=== PATIENT | male | born 1980 | race Native Hawaiian/Other Pacific Islander ===

== ENCOUNTER 2017-12-26 23:33 | Emergency (ER) | payer MEDICARE ==
[2017-12-27 01:14] VITALS: BP 128/80; PULSE 84; TEMP 98.6; BMI 35.6
[2017-12-27] MEDS ORDERED: METOCLOPRAMIDE HCL INJECTION 10 MG/2 ML VIAL IVPUSH ONE (01:14)
[2017-12-27] MEDS ORDERED: KETOROLAC TROMETHAMINE 30 MG/1 ML VIAL IVPUSH ONE (01:14)
[2017-12-27] MEDS ORDERED: SODIUM CHLORIDE 0.9% 500 ML INFUS.BAG IV ONE (01:15)
[2017-12-27] MEDS ORDERED: methylPREDNISolone NA SUCC 125 MG/2 ML VIAL IVPB ONE (01:38)
--- NOTE | 2017-12-27 01:45 | PDOC ---
History of Present Illness - General Chief Complaint: Lightheaded Stated Complaint: LIGHTHEADED History Source: Patient Exam Limitations: No Limitations - History of Present Illness Initial Comments: 12/27/17 01:38 Patient is a 37 year old male with h/o HTN, asthma, arthritis, c/o left facial pain x 3 days. States he has been having an infection in the right lower jaw x 1 month. Has been on antibx for this and is scheduled for extraction in 4 days. Patient states the he has been having intermittent pain but 3 days the pain has worsened, continuos, 10/10, with photophobia. States has been congested and thinks this cough be his sinus. Denies fever, chills, nausea , vomiting. PMD: Koby PMHX: as above PsocHX: neg cig, drug, etoh ALL: NKDA GENERAL/CONSTITUTIONAL: [No fever or chills. No weakness. No weight change.] HEAD, EYES, EARS, NOSE AND THROAT: [No change in vision. No ear pain or discharge. No sore throat, (+) dental caries.] CARDIOVASCULAR: [No chest pain or shortness of breath.] RESPIRATORY: [No cough, wheezing, or hemoptysis.] GASTROINTESTINAL: [No nausea, vomiting, diarrhea or constipation. No rectal bleeding.] GENITOURINARY: [No dysuria, frequency, or change in urination.] MUSCULOSKELETAL: [No joint or muscle swelling or pain. No neck or back pain.] SKIN AND BREASTS: [No rash or easy bruising.] NEUROLOGIC: (+) headache, (-) vertigo, loss of consciousness, or loss of sensation.] PSYCHIATRIC: [No depression or anxiety.] ENDOCRINE: [No increased thirst. No abnormal weight change.] HEMATOLOGIC/LYMPHATIC: [No anemia, easy bleeding, or history of blood clots.] ALLERGIC/IMMUNOLOGIC: [No hives or skin allergy. No latex allergy.] GENERAL: [The patient is awake, alert, and fully oriented, moderate painful distress.] HEAD: [Normal with no signs of trauma, (+) tenderness frontal sinus.] EYES: [Pupils equal, round and reactive to light, extraocular movements intact, sclera anicteric, conjunctiva clear.] ENT: [Ears normal, nares patent, oropharynx clear without exudates. Moist mucous membranes. (+) dental caries to the #18, tender nodes submandible.] NECK: [Normal range of motion, supple without lymphadenopathy, JVD, or masses.] LUNGS: [Breath sounds equal, clear to auscultation bilaterally. No wheezes, and no crackles.] HEART: [Regular rate and rhythm, normal S1 and S2 without murmur, rub.] ABDOMEN: [Soft, nontender, normoactive bowel sounds. No guarding, no rebound. No masses.] EXTREMITIES: [Normal range of motion, no edema. No clubbing or cyanosis. No cords, erythema, or tenderness.] NEUROLOGICAL: [Cranial nerves II through XII grossly intact. Normal speech, normal gait, (+) photophobia left, no meningeal signs] PSYCH: [Normal mood, normal affect.] Past History - Past Medical History Allergies/Adverse Reactions: Allergies Allergy/AdvReac Type Severity Reaction Status Date / Time fish derived Allergy Severe Difficulty Verified 12/27/17 00:50 Breathing SEAFOOD Allergy Swelling Uncoded 12/27/17 00:50 Home Medications: Ambulatory Orders Fluticasone/Salmeterol [Advair 250-50 Diskus] 1 each IH DAILY 12/27/17 Losartan Potassium 25 mg PO DAILY 12/27/17 Naproxen 500 mg PO PRN 12/27/17 Tramadol HCl 50 mg PO PRN 12/27/17 Asthma: Yes COPD: No HTN: Yes - Immunization History Td Vaccination: Yes Immunization Up to Date: Yes - Suicide/Smoking/Psychosocial Hx Smoking Status: Yes (QUIT 01/2013) Smoking History: Former smoker Years of Tobacco Use: 20 Have you smoked in the past 12 months: No Number of Cigarettes Smoked Daily: 0 Cigars Per Day: 0 Information on smoking cessation initiated: No *Physical Exam - Vital Signs Last Vital Signs Temp Pulse Resp BP Pulse Ox 98.6 F 84 20 128/80 98 12/26/17 23:33 12/26/17 23:33 12/26/17 23:33 12/26/17 23:33 12/26/17 23:33 ED Treatment Course - LABORATORY CBC & Chemistry Diagram: 12/27/17 01:48 12/27/17 01:48 Medical Decision Making - Medical Decision Making 12/27/17 Patient is a 37 year old male with h/o HTN, asthma, arthritis, c/o left facial pain x 3 days, with tooth decay, and tenderness to left frontal sinus, with congestion. consider migraine, sinus SHAW, toothache/dental abscess. will treat with toradol, reglan, benadryl, solumedrol labs noted wbc 15 on cbc mostly stress induced Patient is feeling better the SHAW is resolved I discussed the physical exam findings, ancillary test results and final diagnoses with the patient. I answered all of the patient's questions. The patient was satisfied with the care received and felt comfortable with the discharge plan and treatment plan. The Patient agrees to follow up with the primary care physician within 24-72 hours. *DC/Admit/Observation/Transfer Diagnosis at time of Disposition: Tooth decay Sinusitis Qualifiers: Sinusitis location: unspecified location Chronicity: acute Recurrence: non- recurrent Qualified Code(s): J01.90 - Acute sinusitis, unspecified - Discharge Dispostion Disposition: HOME Condition at time of disposition: Stable - Referrals Referrals: Greg Whalen MD [Primary Care Provider] - - Patient Instructions Printed Discharge Instructions: DI for Sinusitis Additional Instructions: I discussed the physical exam findings, ancillary test results and final diagnoses with the patient. I answered all of the patient's questions. The patient was satisfied with the care received and felt comfortable with the discharge plan and treatment plan. The Patient agrees to follow up with the primary care physician within 24-72 hours. Follow-up with the dentist. Continue the Motrin 600 mg every 6 hours, take it with food. - Post Discharge Activity
[2017-12-27] MEDS ORDERED: METOCLOPRAMIDE HCL INJECTION 10 MG/2 ML VIAL ONE (01:50)
[2017-12-27] MEDS ORDERED: methylPREDNISolone NA SUCC 125 MG/2 ML VIAL ONE (01:51)
[2017-12-27] MEDS ORDERED: KETOROLAC TROMETHAMINE 30 MG/1 ML VIAL ONE (01:51)
[2017-12-27 01:57] LABS: BASO % 1.1 % (0-2.0); EOS % 2.4 % (0-4.5); LYMPH % 23.1 % (8-40); MCH 30.3 pg (25.7-33.7); MCHC 34.1 g/dl (32.0-35.9); MEAN CELL VOLUME 88.9 fl (80-96); MEAN PLT VOLUME 8.2 fl (7.5-11.1); MONO % 4.6 % (3.8-10.2); NEUT % 68.8 % (42.8-82.8); PLATELET COUNT 307 K/MM3 (134-434); RBC 4.61 M/mm3 (4.00-5.60); RDW 13.3 % (11.9-15.9); WHITE BLOOD COUNT 15.9 K/mm3 (4.0-10.0)
== END 2017-12-27 04:50 | disposition home or self-care (01) ==
LOC: JER 23:33
PROC: 3E0333Z Introduction of Anti-inflammatory into Peripheral Vein, Percutaneous Approach (ICD-10-PCS; principal; 2017-12-27)
PROC: 3E0333Z Introduction of Anti-inflammatory into Peripheral Vein, Percutaneous Approach (ICD-10-PCS; 2017-12-27)
PROC: 3E033GC Introduction of Other Therapeutic Substance into Peripheral Vein, Percutaneous Approach (ICD-10-PCS; 2017-12-27)
PROC: 3E033GC Introduction of Other Therapeutic Substance into Peripheral Vein, Percutaneous Approach (ICD-10-PCS; 2017-12-27)
DX: J01.90 Acute sinusitis, unspecified (principal); K02.9 Dental caries, unspecified; I10 Essential (primary) hypertension; J45.909 Unspecified asthma, uncomplicated; M12.9 Arthropathy, unspecified
CPT/HCPCS: 36415; 85025; 87070; 87430; 99283-25

== ENCOUNTER 2021-04-06 02:25 | Emergency (ER) | payer OTHER ==
[2021-04-06] MEDS ORDERED: KETOROLAC TROMETHAMINE 15 MG/ML VIAL IM ONE (03:23)
[2021-04-06] MEDS ORDERED: DEXAMETHASONE SOD PHOSPHATE 4 MG/1 ML VIAL IM ONE (03:29)
[2021-04-06 03:49] VITALS: BP 116/83; PULSE 109; TEMP 98.1; BMI 38.2
== END 2021-04-06 03:58 | disposition left against medical advice (07) ==
LOC: JER 02:25
PROC: 3E0233Z Introduction of Anti-inflammatory into Muscle, Percutaneous Approach (ICD-10-PCS; principal; 2021-04-06)
DX: M54.5 Low back pain (principal)
CPT/HCPCS: 99284-25

== ENCOUNTER 2021-05-10 19:47 | Inpatient (IN) | payer OTHER ==
[2021-05-10] MEDS ORDERED: LACTULOSE 20 GM/30 ML UDC (FOR ORAL USE ONLY) PO ONE (22:14)
[2021-05-10] MEDS ORDERED: LACTULOSE 20 GM/30 ML UDC (FOR ORAL USE ONLY) ONE (22:23)
[2021-05-10] MEDS ORDERED: KETOROLAC TROMETHAMINE 30 MG/1 ML VIAL IVPUSH ONE (22:32)
[2021-05-10] MEDS ORDERED: KETOROLAC TROMETHAMINE 30 MG/1 ML VIAL ONE (22:35)
[2021-05-10 22:39] LABS: BASO % 0.5 % (0-2.0); EOS % 1.9 % (0-4.5); LYMPH % 19.7 % (8-40); MCH 30.4 pg (25.7-33.7); MCHC 34.1 g/dl (32.0-35.9); MEAN PLT VOLUME 7.3 fl (7.5-11.1); MONO % 4.1 % (3.8-10.2); NEUT % 73.8 % (42.8-82.8); PLATELET COUNT 327 10^3/uL (134-434); RBC 4.95 M/mm3 (4.00-5.60); RDW 13.1 % (11.9-15.9); WHITE BLOOD COUNT 17.9 K/mm3 (4.0-10.0)
[2021-05-10 22:52] LABS: EPI CELLS 7 /uL (0-25.1); HYALINE CASTS 0 /uL (0-3.1); URINE APPEARANCE TURBID; URINE BACTERIA 2 /uL (0-1359); URINE BILIRUBIN NEGATIVE (NEGATIVE); URINE COLOR ORANGE; URINE GLUCOSE (UA) NEGATIVE (NEGATIVE); URINE KETONE TRACE (NEGATIVE); URINE LEUK ESTERASE 1+ (NEGATIVE); URINE NITRITE NEGATIVE (NEGATIVE); URINE PROTEIN 1+ (NEGATIVE); URINE RBC 532 /uL (0-23.9); URINE UROBILINOGEN 0.2 mg/dL (0.2-1.0); URINE WBC 63 /uL (0-25.8)
[2021-05-10 23:03] LABS: CALCIUM 9.3 mg/dL (8.5-10.1)
[2021-05-10 23:04] LABS: ALBUMIN 3.6 g/dl (3.4-5.0); BLOOD UREA NITROGEN 10.3 mg/dL (7-18)
[2021-05-10 23:08] LABS: BILIRUBIN,TOTAL 0.4 mg/dL (0.2-1); CREATININE 1.8 mg/dL (0.55-1.3); TOT PROT 7.5 g/dl (6.4-8.2)
[2021-05-10 23:09] LABS: PROTHROMBIN TIME (PATIENT) 12.1 SEC (9.7-13.0)
[2021-05-10] MEDS ORDERED: CEFTRIAXONE 1 GM in DEXTROSE 5%-WATER - 50 ML IVPB ONE (23:31)
[2021-05-10] MEDS ORDERED: CEFTRIAXONE 1 GM/50 ML BAG ONE (23:52)
[2021-05-11] MEDS ORDERED: ACETAMINOPHEN INJECTION 100 ML IVPB ONE (00:53)
[2021-05-11] MEDS: DEXTROSE 5%-0.45% SALINE 1,000 ML IV SCH (00:58)
[2021-05-11] MEDS: ACETAMINOPHEN 1000 MG/100 ML VIAL (NON FORMULARY) IVPB PRN ×2 (00:59→10:20)
[2021-05-11 05:44] VITALS: BMI 38.7
[2021-05-11 08:42] LABS: BASO % 0.4 % (0-2.0); EOS % 3.3 % (0-4.5); HEMATOCRIT 41.5 % (35.4-49); LYMPH % 24.1 % (8-40); MCH 30.4 pg (25.7-33.7); MCHC 33.8 g/dl (32.0-35.9); MEAN CELL VOLUME 90.2 fl (80-96); MEAN PLT VOLUME 8.1 fl (7.5-11.1); MONO % 4.5 % (3.8-10.2); NEUT % 67.7 % (42.8-82.8); PLATELET COUNT 305 10^3/uL (134-434); RBC 4.61 M/mm3 (4.00-5.60); RDW 13.1 % (11.9-15.9); WHITE BLOOD COUNT 14.2 K/mm3 (4.0-10.0)
[2021-05-11 09:10] LABS: ALBUMIN 3.2 g/dl (3.4-5.0); BLOOD UREA NITROGEN 15.4 mg/dL (7-18); CALCIUM 8.7 mg/dL (8.5-10.1)
[2021-05-11 09:13] LABS: CREATININE 1.8 mg/dL (0.55-1.3)
[2021-05-11 09:14] LABS: BILIRUBIN,TOTAL 0.3 mg/dL (0.2-1); TOT PROT 6.6 g/dl (6.4-8.2)
[2021-05-11] MEDS ORDERED: DEXTROSE 5%-WATER - 50 ML IVPB ONE ×2 (10:11→17:32)
[2021-05-11] MEDS ORDERED: PIPERACILLIN/TAZOBACTAM 3.375 GM VIAL IVPB ONE ×2 (10:11→17:32)
[2021-05-11] MEDS: PIPERACILLIN/TAZOB 3.375 GM 3.375 GM in DEXTROSE 5%-WATER - 50 ML IVPB SCH ×2 (10:24→17:39)
[2021-05-11] MEDS: LOSARTAN POTASSIUM 25 MG TABLET PO SCH (10:24)
[2021-05-11] MEDS ORDERED: POTASSIUM CHLORIDE TABS 20 MEQ TABLET.ER (FP) PO ONE (15:29)
[2021-05-11] MEDS: ACETAMINOPHEN 500 MG TABLET (FP) PO PRN (17:55)
[2021-05-11] MEDS ORDERED: CEFTRIAXONE 1 GM in DEXTROSE 5%-WATER - 50 ML IVPB SCH (18:00)
[2021-05-11] MEDS: POLYETHYLENE GLYCOL (HEALTHYLAX) 3350 17 GM PACKET PO SCH (19:31)
[2021-05-11] MEDS ORDERED: MORPHINE SULFATE 2 MG/ML VIAL IVPUSH ONE (21:10)
[2021-05-11] MEDS: DOCUSATE SODIUM 100 MG CAPSULE (FP) PO SCH (21:28)
[2021-05-12] MEDS ORDERED: PIPERACILLIN/TAZOBACTAM 3.375 GM VIAL IVPB ONE ×3 (01:11→18:38)
[2021-05-12] MEDS ORDERED: DEXTROSE 5%-WATER - 50 ML IVPB ONE ×3 (01:12→18:38)
[2021-05-12] MEDS: DEXTROSE 5%-0.45% SALINE 1,000 ML IV SCH ×2 (01:33→02:20)
[2021-05-12] MEDS: PIPERACILLIN/TAZOB 3.375 GM 3.375 GM in DEXTROSE 5%-WATER - 50 ML IVPB SCH ×3 (01:33→18:42)
[2021-05-12] MEDS: ACETAMINOPHEN 500 MG TABLET (FP) PO PRN ×2 (01:36→09:00)
[2021-05-12] MEDS: LOSARTAN POTASSIUM 25 MG TABLET PO SCH (10:14)
[2021-05-12] MEDS: POLYETHYLENE GLYCOL (HEALTHYLAX) 3350 17 GM PACKET PO SCH (10:14)
[2021-05-12 13:54] LABS: BASO % 0.3 % (0-2.0); HEMATOCRIT 41.5 % (35.4-49); HEMOGLOBIN 14.2 GM/dL (11.7-16.9); LYMPH % 21.6 % (8-40); MCH 30.8 pg (25.7-33.7); MCHC 34.2 g/dl (32.0-35.9); MEAN CELL VOLUME 90.1 fl (80-96); MEAN PLT VOLUME 7.8 fl (7.5-11.1); MONO % 5.1 % (3.8-10.2); PLATELET COUNT 318 10^3/uL (134-434); RBC 4.61 M/mm3 (4.00-5.60); WHITE BLOOD COUNT 14.1 K/mm3 (4.0-10.0)
[2021-05-12 14:15] LABS: CALCIUM 8.7 mg/dL (8.5-10.1)
[2021-05-12 14:16] LABS: ALBUMIN 3.2 g/dl (3.4-5.0)
[2021-05-12 14:21] LABS: BILIRUBIN,TOTAL 0.4 mg/dL (0.2-1); TOT PROT 6.8 g/dl (6.4-8.2)
[2021-05-12] MEDS ORDERED: CYCLOBENZAPRINE HCL 5 MG TABLET PO ONE (16:01)
[2021-05-12] MEDS: ACETAMINOPHEN 1000 MG/100 ML VIAL (NON FORMULARY) IVPB PRN ×2 (16:46→22:34)
[2021-05-12] MEDS: DOCUSATE SODIUM 100 MG CAPSULE (FP) PO SCH (21:09)
[2021-05-13] MEDS ORDERED: DEXTROSE 5%-WATER - 50 ML IVPB ONE ×3 (00:33→17:18)
[2021-05-13] MEDS ORDERED: PIPERACILLIN/TAZOBACTAM 3.375 GM VIAL IVPB ONE ×3 (00:33→17:18)
[2021-05-13] MEDS: DEXTROSE 5%-0.45% SALINE 1,000 ML IV SCH ×2 (01:15→21:43)
[2021-05-13] MEDS: PIPERACILLIN/TAZOB 3.375 GM 3.375 GM in DEXTROSE 5%-WATER - 50 ML IVPB SCH ×3 (01:25→17:58)
[2021-05-13] MEDS: ACETAMINOPHEN 1000 MG/100 ML VIAL (NON FORMULARY) IVPB PRN ×2 (05:04→12:08)
[2021-05-13] MEDS ORDERED: PT OWN MED DRAWER 7, Y5N ONE (09:27)
[2021-05-13] MEDS: LOSARTAN POTASSIUM 25 MG TABLET PO SCH (09:33)
[2021-05-13] MEDS: POLYETHYLENE GLYCOL (HEALTHYLAX) 3350 17 GM PACKET PO SCH (09:33)
[2021-05-13] MEDS: KETOROLAC TROMETHAMINE 15 MG/ML VIAL IVPUSH PRN (21:39)
[2021-05-13] MEDS: DOCUSATE SODIUM 100 MG CAPSULE (FP) PO SCH (21:43)
[2021-05-13 21:54] VITALS: TEMP 98.2
[2021-05-14] MEDS ORDERED: PIPERACILLIN/TAZOBACTAM 3.375 GM VIAL IVPB ONE ×2 (00:53→09:31)
[2021-05-14] MEDS ORDERED: DEXTROSE 5%-WATER - 50 ML IVPB ONE ×2 (00:53→09:31)
[2021-05-14] MEDS: PIPERACILLIN/TAZOB 3.375 GM 3.375 GM in DEXTROSE 5%-WATER - 50 ML IVPB SCH ×2 (00:58→09:51)
[2021-05-14] MEDS: DEXTROSE 5%-0.45% SALINE 1,000 ML IV SCH (00:59)
[2021-05-14 07:12] VITALS: BP 109/74; PULSE 62
[2021-05-14 07:29] LABS: BASO % 0.3 % (0-2.0); EOS % 3.7 % (0-4.5); HEMATOCRIT 38.4 % (35.4-49); HEMOGLOBIN 13.1 GM/dL (11.7-16.9); LYMPH % 27.2 % (8-40); MCH 30.9 pg (25.7-33.7); MCHC 34.2 g/dl (32.0-35.9); MEAN CELL VOLUME 90.3 fl (80-96); MEAN PLT VOLUME 7.8 fl (7.5-11.1); MONO % 5.5 % (3.8-10.2); NEUT % 63.3 % (42.8-82.8); PLATELET COUNT 318 10^3/uL (134-434); RBC 4.25 M/mm3 (4.00-5.60); RDW 12.8 % (11.9-15.9)
[2021-05-14 07:38] LABS: BLOOD UREA NITROGEN 8.3 mg/dL (7-18); CALCIUM 8.5 mg/dL (8.5-10.1)
[2021-05-14 07:42] LABS: CREATININE 1.6 mg/dL (0.55-1.3)
[2021-05-14 07:43] LABS: BILIRUBIN,TOTAL 0.3 mg/dL (0.2-1); TOT PROT 6.4 g/dl (6.4-8.2)
[2021-05-14] MEDS: POLYETHYLENE GLYCOL (HEALTHYLAX) 3350 17 GM PACKET PO SCH (09:52)
[2021-05-14] MEDS: LOSARTAN POTASSIUM 25 MG TABLET PO SCH (09:52)
[2021-05-14] MEDS: KETOROLAC TROMETHAMINE 15 MG/ML VIAL IVPUSH PRN (09:58)
== END 2021-05-14 14:27 | disposition home or self-care (01) | DRG 694 ==
LOC: JER 19:47 → JERBED 21:50 → J8W 05-11 05:23
PROVIDERS: ADMIT Internal Medicine; ATTEND Internal Medicine
DX: N13.2 Hydronephrosis with renal and ureteral calculous obstruction (principal); M32.9 Systemic lupus erythematosus, unspecified; K59.00 Constipation, unspecified; R31.9 Hematuria, unspecified; I10 Essential (primary) hypertension; F17.210 Nicotine dependence, cigarettes, uncomplicated; E66.9 Obesity, unspecified; Z68.38 Body mass index [BMI] 38.0-38.9, adult
CPT/HCPCS: 36415; 71046-TC-FY; 74176-TC; 76775-TC; 80053; 81003; 83605; 85025; 85610; 87040; 87086; 93005; 93010; 99285-25; C9803; J0131; U0003; U0005

== ENCOUNTER 2021-06-09 04:51 | Day surgery (SDC) | payer OTHER ==
[2021-06-06 18:00] VITALS: BMI 36.2
[2021-06-09] MEDS ORDERED: PROPOFOL 20 ML ONE ×2 (10:29→10:39)
[2021-06-09] MEDS ORDERED: ceFAZolin SODIUM 1 GM VIAL ONE (10:49)
[2021-06-09] MEDS ORDERED: ceFAZolin SODIUM 1 GM VIAL IVPB ONE (10:51)
[2021-06-09] MEDS ORDERED: DEXAMETHASONE SOD PHOSPHATE 4 MG/1 ML VIAL ONE (10:53)
[2021-06-09] MEDS ORDERED: KETOROLAC TROMETHAMINE 30 MG/1 ML VIAL ONE (11:35)
[2021-06-09] MEDS ORDERED: oxyCODONE HCL 5 MG TABLET PO PRN (11:48)
[2021-06-09] MEDS ORDERED: ACETAMINOPHEN 325 MG TABLET (FP) PO PRN (11:48)
[2021-06-09] MEDS ORDERED: ONDANSETRON 4 MG/2 ML VIAL IVPUSH PRN (11:48)
[2021-06-09] MEDS ORDERED: LACTATED RINGERS SOLUTION 1,000 ML IV SCH (12:00)
[2021-06-09] MEDS ORDERED: ALBUTEROL SO4 0.083% IH SOL 2.5 MG/3 ML VIAL.NEB. NEB ONE (12:24)
[2021-06-09] MEDS ORDERED: ACETAMINOPHEN INJECTION 100 ML IVPB ONE (13:06)
[2021-06-09] MEDS ORDERED: ACETAMINOPHEN 1000 MG/100 ML VIAL (NON FORMULARY) IVPB ONE (14:03)
[2021-06-09] MEDS ORDERED: ALBUTEROL SO4 0.5 % INH SOLN 2.5 MG/0.5 ML VIAL.NEB. NEB ONE (14:03)
[2021-06-09] MEDS ORDERED: oxyCODONE HCL 5 MG TABLET ONE (14:28)
[2021-06-09 14:49] VITALS: BP 124/84; PULSE 67; TEMP 97.5
== END 2021-06-09 15:01 | disposition home or self-care (01) ==
LOC: JASU-SURG 04:51
PROVIDERS: ATTEND Urology
PROC: 0TC78ZZ Extirpation of Matter from Left Ureter, Via Natural or Artificial Opening Endoscopic (ICD-10-PCS; principal; 2021-06-09 10:00)
PROC: 0T778DZ Dilation of Left Ureter with Intraluminal Device, Via Natural or Artificial Opening Endoscopic (ICD-10-PCS; 2021-06-09 10:00)
PROC: BT1FYZZ Fluoroscopy of Left Kidney, Ureter and Bladder using Other Contrast (ICD-10-PCS; 2021-06-09 10:00)
DX: N13.2 Hydronephrosis with renal and ureteral calculous obstruction (principal)
CPT/HCPCS: 87086; 87186; 88108; 94760; J0131

== ENCOUNTER 2021-10-30 15:03 | Day surgery (SDC) | payer OTHER ==
[2021-10-30] MEDS ORDERED: BLEOMYCIN SULFATE IVPB ONE (15:45)
[2021-10-30] MEDS ORDERED: SODIUM CHLORIDE IVPB ONE (15:45)
[2021-10-30 17:36] VITALS: TEMP 98.6
[2021-10-30 17:37] VITALS: BP 100/69; PULSE 104
== END 2021-10-30 17:40 | disposition home or self-care (01) ==
LOC: JONCCHEMO 15:03 → J7W 15:10 → JONCCHEMO 17:40
PROVIDERS: ATTEND Internal Medicine Hematology & Oncology
DX: Z51.11 Encounter for antineoplastic chemotherapy (principal); C62.90 Malignant neoplasm of unspecified testis, unspecified whether descended or undescended
CPT/HCPCS: 96409; J9040

== ENCOUNTER 2021-10-31 14:05 | Day surgery (SDC) | payer OTHER ==
[~2021-10-31 14:05] MED LIST: BLEOMYCIN SULFATE IVPB ONE; CISPLATIN IV ONE; DEXAMETHASONE SODIUM PHOSPHATE 10 MG, ONDANSETRON INJECTION 8 MG in SODIUM CHLORIDE 100 ML IVPB ONE; ETOPOSIDE IV ONE; FOSAPREPITANT DIMEGLUMINE 150 MG in SODIUM CHLORIDE 145 ML IVPB ONE; KCL 10 MEQ IVPB 10 MEQ/100 ML INFUS.BAG IVPB ONE; MAGNESIUM 1GM/D5W - 1 GM/100 ML IVPB IVPB ONE; SODIUM CHLORIDE 0.9% IV ONE; SODIUM CHLORIDE 1,000 ML IV ONE; SODIUM CHLORIDE IV ONE; SODIUM CHLORIDE IVPB ONE
[2021-10-31 15:10] LABS: BASO % 0.3 % (0-2.0); EOS % 4.1 % (0-4.5); HEMATOCRIT 40.5 % (35.4-49); HEMOGLOBIN 13.4 GM/dL (11.7-16.9); MCH 27.6 pg (25.7-33.7); MCHC 33.1 g/dl (32.0-35.9); MEAN CELL VOLUME 83.4 fl (80-96); MEAN PLT VOLUME 7.3 fl (7.5-11.1); MONO % 5.5 % (3.8-10.2); NEUT % 60.1 % (42.8-82.8); PLATELET COUNT 424 10^3/uL (134-434); RBC 4.85 M/mm3 (4.00-5.60); RDW 14.6 % (11.9-15.9); WHITE BLOOD COUNT 9.3 K/mm3 (4.0-10.0)
[2021-10-31 15:38] LABS: CALCIUM 9.4 mg/dL (8.5-10.1)
[2021-10-31 15:39] LABS: ALBUMIN 3.7 g/dl (3.4-5.0); BLOOD UREA NITROGEN 9.3 mg/dL (7-18); MAGNESIUM 1.9 mg/dL (1.8-2.4)
[2021-10-31 15:42] LABS: CREATININE 0.9 mg/dL (0.55-1.3)
[2021-10-31 15:43] LABS: TOT PROT 7.8 g/dl (6.4-8.2)
[2021-10-31 15:44] LABS: BILIRUBIN,TOTAL 0.3 mg/dL (0.2-1)
[2021-10-31 21:10] VITALS: BP 137/65; PULSE 81; TEMP 98.3
== END 2021-10-31 21:45 | disposition home or self-care (01) ==
LOC: J7W 14:05 → JONCCHEMO 14:05
PROVIDERS: ATTEND Internal Medicine Hematology & Oncology
DX: Z51.11 Encounter for antineoplastic chemotherapy (principal); C62.90 Malignant neoplasm of unspecified testis, unspecified whether descended or undescended
CPT/HCPCS: 36415; 80053; 83615; 83735; 85025; 96367; 96375; 96411; 96413; 96417; J1453; J9040

== ENCOUNTER 2021-11-01 15:00 | Day surgery (SDC) | payer OTHER ==
[~2021-11-01 15:00] MED LIST changes: -BLEOMYCIN SULFATE IVPB ONE; -FOSAPREPITANT DIMEGLUMINE 150 MG in SODIUM CHLORIDE 145 ML IVPB ONE; -SODIUM CHLORIDE 0.9% IV ONE; -SODIUM CHLORIDE IVPB ONE
[2021-11-01 17:44] VITALS: TEMP 97.9
[2021-11-01 18:37] VITALS: BP 121/80; PULSE 74
== END 2021-11-01 18:40 | disposition home or self-care (01) ==
LOC: JONCCHEMO 15:00
PROVIDERS: ATTEND Internal Medicine Hematology & Oncology
DX: Z51.11 Encounter for antineoplastic chemotherapy (principal); C62.90 Malignant neoplasm of unspecified testis, unspecified whether descended or undescended
CPT/HCPCS: 96361; 96366; 96367; 96413; 96417

== ENCOUNTER 2021-11-02 08:46 | Day surgery (SDC) | payer OTHER ==
[~2021-11-02 08:46] MED LIST changes: +BLEOMYCIN SULFATE IVPB ONE; -CISPLATIN IV ONE; -DEXAMETHASONE SODIUM PHOSPHATE 10 MG, ONDANSETRON INJECTION 8 MG in SODIUM CHLORIDE 100 ML IVPB ONE; -ETOPOSIDE IV ONE; -KCL 10 MEQ IVPB 10 MEQ/100 ML INFUS.BAG IVPB ONE; -MAGNESIUM 1GM/D5W - 1 GM/100 ML IVPB IVPB ONE; -SODIUM CHLORIDE 1,000 ML IV ONE; -SODIUM CHLORIDE IV ONE; +SODIUM CHLORIDE IVPB ONE
[2021-11-02] MEDS ORDERED: SODIUM CHLORIDE 1,000 ML IV ONE ×2 (09:00→13:30)
[2021-11-02] MEDS ORDERED: DEXAMETHASONE SODIUM PHOSPHATE 10 MG, ONDANSETRON INJECTION 8 MG in SODIUM CHLORIDE 100 ML IVPB ONE (10:00)
[2021-11-02] MEDS ORDERED: SODIUM CHLORIDE IV ONE ×2 (10:30→12:30)
[2021-11-02] MEDS ORDERED: ETOPOSIDE IV ONE (10:30)
[2021-11-02] MEDS ORDERED: CISPLATIN IV ONE (12:30)
[2021-11-02] MEDS ORDERED: MAGNESIUM 1GM/D5W - 1 GM/100 ML IVPB IVPB ONE (13:30)
[2021-11-02] MEDS ORDERED: KCL 10 MEQ IVPB 10 MEQ/100 ML INFUS.BAG IVPB ONE (13:30)
[2021-11-02 15:59] VITALS: TEMP 97.9
[2021-11-02 16:52] VITALS: BP 143/92; PULSE 65
== END 2021-11-02 16:40 | disposition home or self-care (01) ==
LOC: JONCCHEMO 08:46 → J7W 08:47 → JONCCHEMO 16:40
PROVIDERS: ATTEND Internal Medicine Hematology & Oncology
DX: Z51.11 Encounter for antineoplastic chemotherapy (principal); C62.90 Malignant neoplasm of unspecified testis, unspecified whether descended or undescended
CPT/HCPCS: 96361; 96366; 96367; 96413; 96417

== ENCOUNTER 2021-11-03 08:28 | Day surgery (SDC) | payer OTHER ==
[2021-11-03] MEDS ORDERED: SODIUM CHLORIDE 1,000 ML IV ONE ×2 (09:30→11:45)
[2021-11-03] MEDS ORDERED: DEXAMETHASONE INJECTION 10 MG, ONDANSETRON INJECTION 8 MG in SODIUM CHLORIDE 100 ML IVPUSH ONE (10:00)
[2021-11-03] MEDS ORDERED: SODIUM CHLORIDE IV ONE ×2 (11:30→13:30)
[2021-11-03] MEDS ORDERED: ETOPOSIDE IV ONE (11:30)
[2021-11-03] MEDS ORDERED: MAGNESIUM 1GM/D5W - 1 GM/100 ML IVPB IVPB ONE (11:45)
[2021-11-03] MEDS ORDERED: KCL 10 MEQ IVPB 10 MEQ/100 ML INFUS.BAG IVPB ONE (11:45)
[2021-11-03] MEDS ORDERED: CISPLATIN IV ONE (13:30)
[2021-11-03] MEDS ORDERED: POTASSIUM CHLORIDE 10 MEQ, MAGNESIUM SULFATE 1 GM in SODIUM CHLORIDE 1,000 ML IV ONE (14:30)
[2021-11-03 15:34] VITALS: TEMP 97.7
[2021-11-03 17:41] VITALS: BP 140/93; PULSE 61
== END 2021-11-03 17:42 | disposition home or self-care (01) ==
LOC: JONCCHEMO 08:28 → J7W 08:28 → JONCCHEMO 17:42
PROVIDERS: ATTEND Internal Medicine Hematology & Oncology
DX: Z12.11 Encounter for screening for malignant neoplasm of colon (principal); C62.90 Malignant neoplasm of unspecified testis, unspecified whether descended or undescended
CPT/HCPCS: 96361; 96366; 96367; 96413; 96415; 96417; J1100

== ENCOUNTER 2021-11-07 15:00 | Day surgery (SDC) | payer OTHER ==
[2021-11-07 11:06] LABS: BASO % 0.8 % (0-2.0); EOS % 1.8 % (0-4.5); HEMATOCRIT 37.2 % (35.4-49); HEMOGLOBIN 12.2 GM/dL (11.7-16.9); LYMPH % 25.2 % (8-40); MCHC 32.9 g/dl (32.0-35.9); MEAN PLT VOLUME 7.8 fl (7.5-11.1); MONO % 0.3 % (3.8-10.2); NEUT % 71.9 % (42.8-82.8); PLATELET COUNT 322 10^3/uL (134-434); RBC 4.53 M/mm3 (4.00-5.60); RDW 14.3 % (11.9-15.9); WHITE BLOOD COUNT 7.7 K/mm3 (4.0-10.0)
[2021-11-07 11:30] LABS: CALCIUM 9.1 mg/dL (8.5-10.1)
[2021-11-07 11:32] LABS: ALBUMIN 3.2 g/dl (3.4-5.0); BLOOD UREA NITROGEN 18.4 mg/dL (7-18); MAGNESIUM 1.1 mg/dL (1.8-2.4)
[2021-11-07 11:34] LABS: CREATININE 0.9 mg/dL (0.55-1.3); URIC ACID 6.7 mg/dL (2.6-7.2)
[2021-11-07 11:36] LABS: BILIRUBIN,TOTAL 0.4 mg/dL (0.2-1); TOT PROT 6.6 g/dl (6.4-8.2)
[~2021-11-07 15:00] MED LIST changes: -BLEOMYCIN SULFATE IVPB ONE; +CISPLATIN IV ONE; +DEXAMETHASONE INJECTION 10 MG in SODIUM CHLORIDE 50 ML IVPB ONE; +ETOPOSIDE IV ONE; +KCL 10 MEQ IVPB 10 MEQ/100 ML INFUS.BAG IVPB ONE; +MAGNESIUM 1GM/D5W - 1 GM/100 ML IVPB IVPB ONE; +PALONOSETRON HCL 0.25 MG/5 ML VIAL IVPUSH ONE; +SODIUM CHLORIDE 1,000 ML IV ONE; +SODIUM CHLORIDE IV ONE; -SODIUM CHLORIDE IVPB ONE
[2021-11-07 16:30] VITALS: TEMP 98.9
[2021-11-08 07:59] VITALS: BP 126/93; PULSE 74
== END 2021-11-07 18:30 | disposition home or self-care (01) ==
LOC: J7W 15:00 → JONCCHEMO 15:00
PROVIDERS: ATTEND Internal Medicine Hematology & Oncology
DX: Z51.11 Encounter for antineoplastic chemotherapy (principal); C62.90 Malignant neoplasm of unspecified testis, unspecified whether descended or undescended
CPT/HCPCS: 36415; 80053; 83615; 83735; 84550; 85025; 96361; 96366; 96367; 96375; 96413; 96415; 96417; J1100; J2469

== ENCOUNTER 2021-11-13 11:00 | Day surgery (SDC) | payer OTHER ==
[2021-11-13 10:24] LABS: HEMATOCRIT 34.1 % (35.4-49); HEMOGLOBIN 11.4 GM/dL (11.7-16.9); MCH 27.5 pg (25.7-33.7); MCHC 33.5 g/dl (32.0-35.9); MEAN CELL VOLUME 82.1 fl (80-96); MEAN PLT VOLUME 7.1 fl (7.5-11.1); PLATELET COUNT 162 10^3/uL (134-434); RBC 4.15 M/mm3 (4.00-5.60); WHITE BLOOD COUNT 2.7 K/mm3 (4.0-10.0)
[2021-11-13 10:47] LABS: CHLORIDE 104 mmol/L (98-107); SODIUM 137 mmol/L (136-145)
[2021-11-13 10:49] LABS: CALCIUM 8.7 mg/dL (8.5-10.1)
[2021-11-13 10:50] LABS: ALBUMIN 3.5 g/dl (3.4-5.0); ANION GAP 7 MMOL/L (8-16); CO2 26 mmol/L (21-32); GLUCOSE,RANDOM 101 mg/dL (74-106); MAGNESIUM 1.7 mg/dL (1.8-2.4)
[2021-11-13 10:52] LABS: BILIRUBIN,DIRECT < 0.1 mg/dL (0.0-0.2); PHOSPHOROUS 2.9 mg/dL (2.5-4.9)
[2021-11-13 10:53] LABS: CREATININE 0.9 mg/dL (0.55-1.3); SGOT/AST 10 U/L (15-37); SGPT/ALT 25 U/L (13-61)
[2021-11-13 10:54] LABS: BILIRUBIN,TOTAL 0.2 mg/dL (0.2-1)
[2021-11-13 10:55] LABS: ALK PHOS 88 U/L (45-117)
[2021-11-13 10:57] LABS: LDH 169 U/L (87-246)
[~2021-11-13 11:00] MED LIST changes: +BLEOMYCIN SULFATE IVPB ONE; +SODIUM CHLORIDE 250 ML IV ONE; +SODIUM CHLORIDE IVPB ONE
[2021-11-13] MEDS ORDERED: DEXAMETHASONE SODIUM PHOSPHATE 10 MG, ONDANSETRON INJECTION 8 MG in SODIUM CHLORIDE 100 ML IVPB ONE (11:30)
[2021-11-13 11:32] LABS: ANISOCYTOSIS 2+; MACROCYTOSIS 0; PLATELET ESTIMATE NORMAL
[2021-11-13 16:39] VITALS: TEMP 98.4
[2021-11-13 16:42] VITALS: BP 138/93; PULSE 89
== END 2021-11-13 13:45 | disposition home or self-care (01) ==
LOC: JONCCHEMO 11:00
PROVIDERS: ATTEND Internal Medicine Hematology & Oncology
PROC: 3E03305 Introduction of Other Antineoplastic into Peripheral Vein, Percutaneous Approach (ICD-10-PCS; principal; 2021-11-13)
PROC: 3E033GC Introduction of Other Therapeutic Substance into Peripheral Vein, Percutaneous Approach (ICD-10-PCS; 2021-11-13)
PROC: 3E033GC Introduction of Other Therapeutic Substance into Peripheral Vein, Percutaneous Approach (ICD-10-PCS; 2021-11-13)
DX: Z51.11 Encounter for antineoplastic chemotherapy (principal); C62.91 Malignant neoplasm of right testis, unspecified whether descended or undescended
CPT/HCPCS: 36415; 80048; 80076; 83615; 83735; 84100; 85027; 96361; 96365; 96409; J2405; J9040

== ENCOUNTER 2021-11-27 11:55 | Day surgery (SDC) | payer OTHER ==
[2021-11-27 11:30] LABS: HEMATOCRIT 38.4 % (35.4-49); HEMOGLOBIN 13.1 GM/dL (11.7-16.9); MCH 28.5 pg (25.7-33.7); MEAN CELL VOLUME 83.7 fl (80-96); MEAN PLT VOLUME 7.1 fl (7.5-11.1); PLATELET COUNT 338 10^3/uL (134-434); RBC 4.59 M/mm3 (4.00-5.60); RDW 16.4 % (11.9-15.9); WHITE BLOOD COUNT 13.1 K/mm3 (4.0-10.0)
[2021-11-27 11:51] LABS: CALCIUM 9.4 mg/dL (8.5-10.1)
[2021-11-27 11:52] LABS: ALBUMIN 3.7 g/dl (3.4-5.0); BLOOD UREA NITROGEN 12.7 mg/dL (7-18); MAGNESIUM 1.9 mg/dL (1.8-2.4)
[~2021-11-27 11:55] MED LIST changes: -CISPLATIN IV ONE; -DEXAMETHASONE INJECTION 10 MG in SODIUM CHLORIDE 50 ML IVPB ONE; +DEXAMETHASONE SODIUM PHOSPHATE 10 MG, ONDANSETRON INJECTION 8 MG in SODIUM CHLORIDE 100 ML IVPB ONE; -ETOPOSIDE IV ONE; -KCL 10 MEQ IVPB 10 MEQ/100 ML INFUS.BAG IVPB ONE; -MAGNESIUM 1GM/D5W - 1 GM/100 ML IVPB IVPB ONE; -PALONOSETRON HCL 0.25 MG/5 ML VIAL IVPUSH ONE; -SODIUM CHLORIDE 1,000 ML IV ONE; -SODIUM CHLORIDE IV ONE
[2021-11-27 11:56] LABS: BILIRUBIN,TOTAL 0.2 mg/dL (0.2-1)
[2021-11-27 11:57] LABS: TOT PROT 7.3 g/dl (6.4-8.2)
[2021-11-27 17:57] VITALS: BP 117/55; PULSE 88; TEMP 98.1
== END 2021-11-27 13:40 | disposition home or self-care (01) ==
LOC: J7W 11:55 → JCHEMO 11:55
PROVIDERS: ATTEND Internal Medicine Hematology & Oncology
PROC: 3E033GC Introduction of Other Therapeutic Substance into Peripheral Vein, Percutaneous Approach (ICD-10-PCS; principal; 2021-11-27)
PROC: 3E0337Z Introduction of Electrolytic and Water Balance Substance into Peripheral Vein, Percutaneous Approach (ICD-10-PCS; 2021-11-27)
PROC: 3E03305 Introduction of Other Antineoplastic into Peripheral Vein, Percutaneous Approach (ICD-10-PCS; 2021-11-27)
DX: Z51.11 Encounter for antineoplastic chemotherapy (principal); C62.91 Malignant neoplasm of right testis, unspecified whether descended or undescended
CPT/HCPCS: 36415; 80053; 83615; 83735; 85025; 96361; 96365; 96409; J2405; J9040

== ENCOUNTER 2021-12-04 09:56 | Day surgery (SDC) | payer OTHER ==
[~2021-12-04 09:56] MED LIST changes: -BLEOMYCIN SULFATE IVPB ONE; -DEXAMETHASONE SODIUM PHOSPHATE 10 MG, ONDANSETRON INJECTION 8 MG in SODIUM CHLORIDE 100 ML IVPB ONE; +SODIUM CHLORIDE 1,000 ML IV ONE; -SODIUM CHLORIDE 250 ML IV ONE; -SODIUM CHLORIDE IVPB ONE
[2021-12-04] MEDS ORDERED: FOSAPREPITANT DIMEGLUMINE 150 MG in SODIUM CHLORIDE 145 ML IVPB ONE (10:00)
[2021-12-04] MEDS ORDERED: DEXAMETHASONE SODIUM PHOSPHATE 10 MG, ONDANSETRON INJECTION 8 MG in SODIUM CHLORIDE 100 ML IVPB ONE (10:00)
[2021-12-04] MEDS ORDERED: BLEOMYCIN SULFATE IVPB ONE (10:30)
[2021-12-04] MEDS ORDERED: SODIUM CHLORIDE IVPB ONE (10:30)
[2021-12-04 11:15] LABS: BASO % 0.3 % (0-2.0); HEMATOCRIT 37.9 % (35.4-49); HEMOGLOBIN 12.9 GM/dL (11.7-16.9); LYMPH % 26.5 % (8-40); MCH 28.2 pg (25.7-33.7); MCHC 33.9 g/dl (32.0-35.9); MEAN CELL VOLUME 83.1 fl (80-96); MEAN PLT VOLUME 7.2 fl (7.5-11.1); MONO % 8.8 % (3.8-10.2); NEUT % 61.4 % (42.8-82.8); PLATELET COUNT 213 10^3/uL (134-434); RBC 4.56 M/mm3 (4.00-5.60); RDW 17.4 % (11.9-15.9); WHITE BLOOD COUNT 10.8 K/mm3 (4.0-10.0)
[2021-12-04] MEDS ORDERED: SODIUM CHLORIDE 0.9% IV ONE (11:30)
[2021-12-04] MEDS ORDERED: ETOPOSIDE IV ONE (11:30)
[2021-12-04 11:40] LABS: CALCIUM 8.4 mg/dL (8.5-10.1)
[2021-12-04 11:41] LABS: ALBUMIN 3.3 g/dl (3.4-5.0); BLOOD UREA NITROGEN 18.3 mg/dL (7-18)
[2021-12-04 11:43] LABS: MAGNESIUM 1.9 mg/dL (1.8-2.4)
[2021-12-04 11:44] LABS: CREATININE 0.9 mg/dL (0.55-1.3)
[2021-12-04 11:46] LABS: BILIRUBIN,TOTAL 0.4 mg/dL (0.2-1); TOT PROT 6.7 g/dl (6.4-8.2)
[2021-12-04] MEDS ORDERED: CISPLATIN IV ONE (12:30)
[2021-12-04] MEDS ORDERED: SODIUM CHLORIDE IV ONE (12:30)
[2021-12-04 16:56] VITALS: BP 139/93; PULSE 75; TEMP 98.2
== END 2021-12-04 16:30 | disposition home or self-care (01) ==
LOC: JCHEMO 09:56 → J7W 09:57 → JCHEMO 16:30
PROVIDERS: ATTEND Internal Medicine Hematology & Oncology
PROC: 3E04305 Introduction of Other Antineoplastic into Central Vein, Percutaneous Approach (ICD-10-PCS; principal; 2021-12-04)
PROC: 3E043GC Introduction of Other Therapeutic Substance into Central Vein, Percutaneous Approach (ICD-10-PCS; 2021-12-04)
PROC: 3E0437Z Introduction of Electrolytic and Water Balance Substance into Central Vein, Percutaneous Approach (ICD-10-PCS; 2021-12-04)
DX: Z51.11 Encounter for antineoplastic chemotherapy (principal); C62.91 Malignant neoplasm of right testis, unspecified whether descended or undescended
CPT/HCPCS: 36415; 80053; 83615; 83735; 85025; 96361; 96367; 96413; 96417; J1453; J9040; J9181

== ENCOUNTER 2021-12-05 08:38 | Day surgery (SDC) | payer OTHER ==
[2021-12-05] MEDS ORDERED: SODIUM CHLORIDE 1,000 ML IV ONE ×2 (09:00→12:30)
[2021-12-05] MEDS ORDERED: ONDANSETRON IVPB ONE (10:00)
[2021-12-05] MEDS ORDERED: DEXAMETHASONE SODIUM PHOSPHATE IVPB ONE (10:00)
[2021-12-05] MEDS ORDERED: [UNRECOGNIZED DRUG - OTHER] IVPB ONE (10:00)
[2021-12-05] MEDS ORDERED: SODIUM CHLORIDE 0.9% IV ONE (10:30)
[2021-12-05] MEDS ORDERED: ETOPOSIDE IV ONE (10:30)
[2021-12-05] MEDS ORDERED: SODIUM CHLORIDE IV ONE (11:30)
[2021-12-05] MEDS ORDERED: CISPLATIN IV ONE (11:30)
[2021-12-05] MEDS ORDERED: MAGNESIUM 1GM/D5W - 1 GM/100 ML IVPB IVPB ONE (12:30)
[2021-12-05] MEDS ORDERED: KCL 10 MEQ IVPB 10 MEQ/100 ML INFUS.BAG IVPB ONE (12:30)
[2021-12-05 16:41] VITALS: BP 132/83; PULSE 66
[2021-12-05 16:49] VITALS: TEMP 98.1
== END 2021-12-05 15:30 | disposition home or self-care (01) ==
LOC: JCHEMO 08:38
PROVIDERS: ATTEND Internal Medicine Hematology & Oncology
PROC: 3E03305 Introduction of Other Antineoplastic into Peripheral Vein, Percutaneous Approach (ICD-10-PCS; principal; 2021-12-05)
PROC: 3E033GC Introduction of Other Therapeutic Substance into Peripheral Vein, Percutaneous Approach (ICD-10-PCS; 2021-12-05)
PROC: 3E0337Z Introduction of Electrolytic and Water Balance Substance into Peripheral Vein, Percutaneous Approach (ICD-10-PCS; 2021-12-05)
DX: Z51.11 Encounter for antineoplastic chemotherapy (principal); C62.91 Malignant neoplasm of right testis, unspecified whether descended or undescended
CPT/HCPCS: 96361; 96367; 96413; 96417

== ENCOUNTER 2021-12-06 08:49 | Day surgery (SDC) | payer OTHER ==
[2021-12-06] MEDS ORDERED: SODIUM CHLORIDE 1,000 ML IV ONE ×2 (09:00→12:30)
[2021-12-06] MEDS ORDERED: DEXAMETHASONE SODIUM PHOSPHATE IVPB ONE (10:00)
[2021-12-06] MEDS ORDERED: [UNRECOGNIZED DRUG - OTHER] IVPB ONE (10:00)
[2021-12-06] MEDS ORDERED: ONDANSETRON IVPB ONE (10:00)
[2021-12-06] MEDS ORDERED: SODIUM CHLORIDE 0.9% IV ONE (10:30)
[2021-12-06] MEDS ORDERED: ETOPOSIDE IV ONE (10:30)
[2021-12-06] MEDS ORDERED: CISPLATIN IV ONE (11:30)
[2021-12-06] MEDS ORDERED: SODIUM CHLORIDE IV ONE (11:30)
[2021-12-06] MEDS ORDERED: MAGNESIUM 1GM/D5W - 1 GM/100 ML IVPB IVPB ONE (12:30)
[2021-12-06] MEDS ORDERED: KCL 10 MEQ IVPB 10 MEQ/100 ML INFUS.BAG IVPB ONE (12:30)
[2021-12-06 15:28] VITALS: BP 142/83; PULSE 70; TEMP 97.5
== END 2021-12-06 14:15 | disposition home or self-care (01) ==
LOC: JCHEMO 08:49 → J7W 08:50 → JCHEMO 14:15
PROVIDERS: ATTEND Internal Medicine Hematology & Oncology
PROC: 3E03305 Introduction of Other Antineoplastic into Peripheral Vein, Percutaneous Approach (ICD-10-PCS; principal; 2021-12-06)
PROC: 3E033GC Introduction of Other Therapeutic Substance into Peripheral Vein, Percutaneous Approach (ICD-10-PCS; 2021-12-06)
PROC: 3E0337Z Introduction of Electrolytic and Water Balance Substance into Peripheral Vein, Percutaneous Approach (ICD-10-PCS; 2021-12-06)
DX: Z51.11 Encounter for antineoplastic chemotherapy (principal); C62.91 Malignant neoplasm of right testis, unspecified whether descended or undescended
CPT/HCPCS: 96361; 96367; 96368; 96375; 96413; 96417

== ENCOUNTER 2021-12-07 11:19 | Day surgery (SDC) | payer OTHER ==
[~2021-12-07 11:19] MED LIST changes: +DEXAMETHASONE SODIUM PHOSPHATE IVPB ONE; +ETOPOSIDE IV ONE; +ONDANSETRON IVPB ONE; +SODIUM CHLORIDE 0.9% IV ONE; +[UNRECOGNIZED DRUG - OTHER] IVPB ONE
[2021-12-07] MEDS ORDERED: SODIUM CHLORIDE IV ONE (11:30)
[2021-12-07] MEDS ORDERED: CISPLATIN IV ONE (11:30)
[2021-12-07] MEDS ORDERED: SODIUM CHLORIDE 1,000 ML IV ONE (12:30)
[2021-12-07] MEDS ORDERED: MAGNESIUM 1GM/D5W - 1 GM/100 ML IVPB IVPB ONE (12:30)
[2021-12-07] MEDS ORDERED: KCL 10 MEQ IVPB 10 MEQ/100 ML INFUS.BAG IVPB ONE (12:30)
[2021-12-07 15:03] VITALS: PULSE 68; TEMP 97.5
[2021-12-07 16:53] VITALS: BP 137/88
== END 2021-12-07 16:53 | disposition home or self-care (01) ==
LOC: JCHEMO 11:19 → J7W 11:20 → JCHEMO 16:53
PROVIDERS: ATTEND Internal Medicine Hematology & Oncology
PROC: 3E03305 Introduction of Other Antineoplastic into Peripheral Vein, Percutaneous Approach (ICD-10-PCS; principal; 2021-12-07)
PROC: 3E033GC Introduction of Other Therapeutic Substance into Peripheral Vein, Percutaneous Approach (ICD-10-PCS; 2021-12-07)
PROC: 3E0337Z Introduction of Electrolytic and Water Balance Substance into Peripheral Vein, Percutaneous Approach (ICD-10-PCS; 2021-12-07)
DX: Z51.11 Encounter for antineoplastic chemotherapy (principal); C62.91 Malignant neoplasm of right testis, unspecified whether descended or undescended
CPT/HCPCS: 96361; 96367; 96413; 96417

== ENCOUNTER 2021-12-08 15:15 | Day surgery (SDC) | payer OTHER ==
[2021-12-08 09:34] VITALS: BP 127/90; PULSE 62; TEMP 97.7
[2021-12-08 10:14] LABS: BASO % 0.2 % (0-2.0); EOS % 0.1 % (0-4.5); HEMOGLOBIN 12.3 GM/dL (11.7-16.9); LYMPH % 31.2 % (8-40); MCH 27.9 pg (25.7-33.7); MCHC 33.3 g/dl (32.0-35.9); MEAN CELL VOLUME 83.8 fl (80-96); MEAN PLT VOLUME 8.1 fl (7.5-11.1); MONO % 2.3 % (3.8-10.2); NEUT % 66.2 % (42.8-82.8); PLATELET COUNT 229 10^3/uL (134-434); RBC 4.41 M/mm3 (4.00-5.60); RDW 17.7 % (11.9-15.9); WHITE BLOOD COUNT 9.2 K/mm3 (4.0-10.0)
[2021-12-08 10:38] LABS: BLOOD UREA NITROGEN 24.8 mg/dL (7-18); CALCIUM 8.4 mg/dL (8.5-10.1)
[2021-12-08 10:39] LABS: ALBUMIN 3.2 g/dl (3.4-5.0); MAGNESIUM 1.8 mg/dL (1.8-2.4)
[2021-12-08 10:41] LABS: CREATININE 1.2 mg/dL (0.55-1.3)
[2021-12-08 10:42] LABS: PHOSPHOROUS 3.4 mg/dL (2.5-4.9)
[2021-12-08 10:43] LABS: BILIRUBIN,TOTAL 0.4 mg/dL (0.2-1); TOT PROT 6.4 g/dl (6.4-8.2)
[~2021-12-08 15:15] MED LIST changes: +CISPLATIN IV ONE; +DEXAMETHASONE SODIUM PHOSPHATE 10 MG in SODIUM CHLORIDE 50 ML IVPB ONE; -DEXAMETHASONE SODIUM PHOSPHATE IVPB ONE; +KCL 10 MEQ IVPB 10 MEQ/100 ML INFUS.BAG IVPB ONE; +MAGNESIUM 1GM/D5W - 1 GM/100 ML IVPB IVPB ONE; -ONDANSETRON IVPB ONE; +PALONOSETRON HCL 0.25 MG/5 ML VIAL IVPUSH ONE; +SODIUM CHLORIDE IV ONE; -[UNRECOGNIZED DRUG - OTHER] IVPB ONE
== END 2021-12-08 15:32 | disposition home or self-care (01) ==
LOC: JCHEMO 15:15
PROVIDERS: ATTEND Internal Medicine Hematology & Oncology
DX: Z51.11 Encounter for antineoplastic chemotherapy (principal); C62.91 Malignant neoplasm of right testis, unspecified whether descended or undescended
CPT/HCPCS: 36415; 80053; 83615; 83735; 84100; 85025; 96361; 96366; 96367; 96375; 96413; 96417; J2469

== ENCOUNTER 2021-12-12 09:01 | Day surgery (SDC) | payer OTHER ==
[2021-12-12 09:39] VITALS: BP 115/76; PULSE 76; TEMP 98.2
[2021-12-12] MEDS ORDERED: SODIUM CHLORIDE 250 ML IV ONE (10:00)
[2021-12-12 10:22] LABS: HEMATOCRIT 35.8 % (35.4-49); HEMOGLOBIN 12.3 GM/dL (11.7-16.9); MCH 28.4 pg (25.7-33.7); MCHC 34.5 g/dl (32.0-35.9); MEAN CELL VOLUME 82.3 fl (80-96); MEAN PLT VOLUME 7.2 fl (7.5-11.1); PLATELET COUNT 167 10^3/uL (134-434); RBC 4.35 M/mm3 (4.00-5.60); RDW 17.9 % (11.9-15.9); WHITE BLOOD COUNT 7.6 K/mm3 (4.0-10.0)
[2021-12-12] MEDS ORDERED: DEXAMETHASONE SODIUM PHOSPHATE 10 MG, ONDANSETRON INJECTION 8 MG in SODIUM CHLORIDE 100 ML IVPB ONE (10:30)
[2021-12-12 10:44] LABS: CALCIUM 8.3 mg/dL (8.5-10.1)
[2021-12-12 10:45] LABS: ALBUMIN 3.4 g/dl (3.4-5.0); BLOOD UREA NITROGEN 19.6 mg/dL (7-18); MAGNESIUM 1.6 mg/dL (1.8-2.4)
[2021-12-12 10:47] LABS: BILIRUBIN,DIRECT 0.1 mg/dL (0.0-0.2); PHOSPHOROUS 2.9 mg/dL (2.5-4.9)
[2021-12-12 10:49] LABS: BILIRUBIN,TOTAL 0.7 mg/dL (0.2-1)
[2021-12-12 10:51] LABS: TOT PROT 6.4 g/dl (6.4-8.2)
[2021-12-12] MEDS ORDERED: SODIUM CHLORIDE IVPB ONE (11:00)
[2021-12-12] MEDS ORDERED: BLEOMYCIN SULFATE IVPB ONE (11:00)
[2021-12-12 11:03] LABS: ANISOCYTOSIS 0; HELMET CELLS 0; HOWELL-JOLLY BODIES 0; MACROCYTOSIS 0; OVALOCYTE 0; ROULEAU 0; SICKELED CELLS 0; TARGET CELLS 0; TEAR DROP CELLS 0; TOXIC GRANULATION 0
[2021-12-12] MEDS ORDERED: MAGNESIUM SULFATE IN WATER 2 GM/50 ML IVPB IVPB ONE (12:00)
[2021-12-12 14:56] LABS: URINE APPEARANCE CLOUDY; URINE BILIRUBIN NEGATIVE (NEGATIVE); URINE COLOR YELLOW; URINE GLUCOSE (UA) NEGATIVE (NEGATIVE); URINE KETONE NEGATIVE (NEGATIVE); URINE LEUK ESTERASE NEGATIVE (NEGATIVE); URINE NITRITE NEGATIVE (NEGATIVE); URINE PROTEIN NEGATIVE (NEGATIVE); URINE UROBILINOGEN 0.2 mg/dL (0.2-1.0)
== END 2021-12-12 13:30 | disposition home or self-care (01) ==
LOC: JCHEMO 09:01 → J7W 09:02 → JCHEMO 13:30
PROVIDERS: ATTEND Internal Medicine Hematology & Oncology
PROC: 3E03305 Introduction of Other Antineoplastic into Peripheral Vein, Percutaneous Approach (ICD-10-PCS; principal; 2021-12-12)
PROC: 3E033GC Introduction of Other Therapeutic Substance into Peripheral Vein, Percutaneous Approach (ICD-10-PCS; 2021-12-12)
PROC: 3E033GC Introduction of Other Therapeutic Substance into Peripheral Vein, Percutaneous Approach (ICD-10-PCS; 2021-12-12)
DX: Z12.11 Encounter for screening for malignant neoplasm of colon (principal); C62.91 Malignant neoplasm of right testis, unspecified whether descended or undescended
CPT/HCPCS: 36415; 80048; 80076; 81003; 83615; 83735; 84100; 85027; 87086; 96365; 96367; 96409; J2405; J9040

== ENCOUNTER 2021-12-19 08:47 | Day surgery (SDC) | payer OTHER ==
[~2021-12-19 08:47] MED LIST changes: +BLEOMYCIN SULFATE IVPB ONE; -CISPLATIN IV ONE; -DEXAMETHASONE SODIUM PHOSPHATE 10 MG in SODIUM CHLORIDE 50 ML IVPB ONE; +DEXAMETHASONE SODIUM PHOSPHATE IVPB ONE; -ETOPOSIDE IV ONE; -KCL 10 MEQ IVPB 10 MEQ/100 ML INFUS.BAG IVPB ONE; -MAGNESIUM 1GM/D5W - 1 GM/100 ML IVPB IVPB ONE; +ONDANSETRON IVPB ONE; -PALONOSETRON HCL 0.25 MG/5 ML VIAL IVPUSH ONE; -SODIUM CHLORIDE 0.9% IV ONE; -SODIUM CHLORIDE 1,000 ML IV ONE; +SODIUM CHLORIDE 250 ML IV ONE; -SODIUM CHLORIDE IV ONE; +SODIUM CHLORIDE IVPB ONE; +[UNRECOGNIZED DRUG - OTHER] IVPB ONE
[2021-12-19] MEDS ORDERED: SODIUM CHLORIDE 250 ML IV ONE (09:00)
[2021-12-19 09:48] LABS: HEMATOCRIT 35.3 % (35.4-49); MCH 28.5 pg (25.7-33.7); MCHC 34.1 g/dl (32.0-35.9); MEAN CELL VOLUME 83.7 fl (80-96); MEAN PLT VOLUME 7.7 fl (7.5-11.1); PLATELET COUNT 112 10^3/uL (134-434); RBC 4.22 M/mm3 (4.00-5.60); RDW 18.6 % (11.9-15.9); WHITE BLOOD COUNT 2.6 K/mm3 (4.0-10.0)
[2021-12-19] MEDS ORDERED: [UNRECOGNIZED DRUG - OTHER] IVPB ONE (10:00)
[2021-12-19] MEDS ORDERED: DEXAMETHASONE SODIUM PHOSPHATE IVPB ONE (10:00)
[2021-12-19] MEDS ORDERED: ONDANSETRON IVPB ONE (10:00)
[2021-12-19 10:06] VITALS: TEMP 98.4
[2021-12-19 10:15] LABS: ALBUMIN 3.4 g/dl (3.4-5.0); BLOOD UREA NITROGEN 16.8 mg/dL (7-18); CALCIUM 8.8 mg/dL (8.5-10.1)
[2021-12-19 10:18] LABS: CREATININE 1.1 mg/dL (0.55-1.3)
[2021-12-19 10:20] LABS: BILIRUBIN,TOTAL 0.2 mg/dL (0.2-1); TOT PROT 6.6 g/dl (6.4-8.2)
[2021-12-19] MEDS ORDERED: BLEOMYCIN SULFATE IVPB ONE (10:30)
[2021-12-19] MEDS ORDERED: SODIUM CHLORIDE IVPB ONE (10:30)
[2021-12-19 11:23] LABS: ANISOCYTOSIS 0; MACROCYTOSIS 0
[2021-12-19 11:26] LABS: PLATELET ESTIMATE SLT DECREASE
[2021-12-19 17:36] VITALS: BP 118/72; PULSE 72
== END 2021-12-19 12:30 | disposition home or self-care (01) ==
LOC: J7W 08:47 → JCHEMO 08:47
PROVIDERS: ATTEND Internal Medicine Hematology & Oncology
PROC: 3E0337Z Introduction of Electrolytic and Water Balance Substance into Peripheral Vein, Percutaneous Approach (ICD-10-PCS; principal; 2021-12-19)
PROC: 3E033GC Introduction of Other Therapeutic Substance into Peripheral Vein, Percutaneous Approach (ICD-10-PCS; 2021-12-19)
DX: C62.91 Malignant neoplasm of right testis, unspecified whether descended or undescended (principal)
CPT/HCPCS: 36415; 80053; 85027; 96361; 96365

== ENCOUNTER 2022-01-01 09:17 | Day surgery (SDC) | payer OTHER ==
[2022-01-01 11:14] LABS: HEMATOCRIT 34.3 % (35.4-49); HEMOGLOBIN 11.9 GM/dL (11.7-16.9); MCHC 34.8 g/dl (32.0-35.9); MEAN CELL VOLUME 83.5 fl (80-96); MEAN PLT VOLUME 7.2 fl (7.5-11.1); PLATELET COUNT 267 10^3/uL (134-434); RBC 4.11 M/mm3 (4.00-5.60); RDW 19.9 % (11.9-15.9); WHITE BLOOD COUNT 14.8 K/mm3 (4.0-10.0)
[2022-01-01] MEDS ORDERED: SODIUM CHLORIDE IVPB ONE (11:15)
[2022-01-01] MEDS ORDERED: SODIUM CHLORIDE 250 ML IV ONE (11:15)
[2022-01-01] MEDS ORDERED: DEXAMETHASONE SODIUM PHOSPHATE 10 MG, ONDANSETRON INJECTION 8 MG in SODIUM CHLORIDE 100 ML IVPB ONE (11:15)
[2022-01-01] MEDS ORDERED: BLEOMYCIN SULFATE IVPB ONE (11:15)
[2022-01-01 11:34] LABS: CALCIUM 8.9 mg/dL (8.5-10.1)
[2022-01-01 11:35] LABS: ALBUMIN 3.4 g/dl (3.4-5.0); BLOOD UREA NITROGEN 18.6 mg/dL (7-18)
[2022-01-01 11:38] LABS: CREATININE 1.1 mg/dL (0.55-1.3)
[2022-01-01 11:40] LABS: BILIRUBIN,TOTAL 0.2 mg/dL (0.2-1); TOT PROT 6.7 g/dl (6.4-8.2)
[2022-01-01 12:39] LABS: ANISOCYTOSIS 0; MACROCYTOSIS 0
[2022-01-01 16:14] VITALS: BP 114/78; PULSE 83; TEMP 98
== END 2022-01-01 13:15 | disposition home or self-care (01) ==
LOC: JCHEMO 09:17 → J7W 09:18 → JCHEMO 13:15
PROVIDERS: ATTEND Internal Medicine Hematology & Oncology
DX: Z51.11 Encounter for antineoplastic chemotherapy (principal); C62.91 Malignant neoplasm of right testis, unspecified whether descended or undescended
CPT/HCPCS: 36415; 80053; 85025; 96361; 96367; 96413; J2405; J9040

== ENCOUNTER 2022-01-09 09:13 | Day surgery (SDC) | payer OTHER ==
[~2022-01-09 09:13] MED LIST changes: +CISPLATIN IV ONE; +DEXAMETHASONE SODIUM PHOSPHATE 10 MG, ONDANSETRON INJECTION 8 MG in SODIUM CHLORIDE 100 ML IVPB ONE; -DEXAMETHASONE SODIUM PHOSPHATE IVPB ONE; +ETOPOSIDE IV ONE; +FOSAPREPITANT DIMEGLUMINE 150 MG in SODIUM CHLORIDE 145 ML IVPB ONE; -ONDANSETRON IVPB ONE; +POTASSIUM CHLORIDE 10 MEQ, MAGNESIUM SULFATE 1 GM in SODIUM CHLORIDE 1,000 ML IV ONE; +SODIUM CHLORIDE 0.9% IV ONE; +SODIUM CHLORIDE 1,000 ML IV ONE; -SODIUM CHLORIDE 250 ML IV ONE; +SODIUM CHLORIDE IV ONE; -[UNRECOGNIZED DRUG - OTHER] IVPB ONE
[2022-01-09] MEDS ORDERED: SODIUM CHLORIDE IV ONE ×2 (09:45→11:00)
[2022-01-09] MEDS ORDERED: CISPLATIN IV ONE ×2 (09:45→11:00)
[2022-01-09] MEDS ORDERED: SODIUM CHLORIDE IVPB ONE ×2 (09:45→11:00)
[2022-01-09] MEDS ORDERED: SODIUM CHLORIDE 1,000 ML IV ONE (09:45)
[2022-01-09] MEDS ORDERED: BLEOMYCIN SULFATE IVPB ONE ×2 (09:45→11:00)
[2022-01-09 09:57] LABS: HEMOGLOBIN 12.6 GM/dL (11.7-16.9); RBC 4.34 M/mm3 (4.00-5.60); WHITE BLOOD COUNT 15.6 K/mm3 (4.0-10.0)
[2022-01-09 09:58] LABS: BASO % 0.4 % (0-2.0); EOS % 3.3 % (0-4.5); HEMATOCRIT 36.4 % (35.4-49); LYMPH % 22.3 % (8-40); MCH 29.1 pg (25.7-33.7); MCHC 34.7 g/dl (32.0-35.9); MEAN CELL VOLUME 83.8 fl (80-96); MEAN PLT VOLUME 7.5 fl (7.5-11.1); MONO % 8.2 % (3.8-10.2); NEUT % 65.8 % (42.8-82.8); PLATELET COUNT 243 10^3/uL (134-434); RDW 20.2 % (11.9-15.9)
[2022-01-09 10:16] LABS: ALBUMIN 3.5 g/dl (3.4-5.0); BLOOD UREA NITROGEN 11.3 mg/dL (7-18); CALCIUM 8.7 mg/dL (8.5-10.1); MAGNESIUM 1.7 mg/dL (1.8-2.4)
[2022-01-09 10:19] LABS: CREATININE 1.1 mg/dL (0.55-1.3)
[2022-01-09 10:20] LABS: BILIRUBIN,TOTAL 0.4 mg/dL (0.2-1); TOT PROT 7.2 g/dl (6.4-8.2)
[2022-01-09] MEDS ORDERED: FOSAPREPITANT DIMEGLUMINE 150 MG in SODIUM CHLORIDE 145 ML IVPB ONE (10:30)
[2022-01-09] MEDS ORDERED: DEXAMETHASONE SODIUM PHOSPHATE 10 MG, ONDANSETRON INJECTION 8 MG in SODIUM CHLORIDE 100 ML IVPB ONE (10:30)
[2022-01-09] MEDS ORDERED: ETOPOSIDE IV ONE (12:00)
[2022-01-09] MEDS ORDERED: POTASSIUM CHLORIDE 10 MEQ, MAGNESIUM SULFATE 1 GM in SODIUM CHLORIDE 1,000 ML IV ONE (12:00)
[2022-01-09] MEDS ORDERED: SODIUM CHLORIDE 0.9% IV ONE (12:00)
[2022-01-09 12:15] LABS: URINE APPEARANCE CLEAR; URINE BILIRUBIN NEGATIVE (NEGATIVE); URINE COLOR YELLOW; URINE GLUCOSE (UA) NEGATIVE (NEGATIVE); URINE KETONE NEGATIVE (NEGATIVE); URINE LEUK ESTERASE NEGATIVE (NEGATIVE); URINE NITRITE NEGATIVE (NEGATIVE); URINE PROTEIN NEGATIVE (NEGATIVE); URINE UROBILINOGEN 0.2 mg/dL (0.2-1.0)
[2022-01-09 18:13] VITALS: TEMP 97.9
[2022-01-09 18:24] VITALS: BP 117/77; PULSE 77
== END 2022-01-09 16:45 | disposition home or self-care (01) ==
LOC: JCHEMO 09:13 → J7W 09:14 → JCHEMO 16:45
PROVIDERS: ATTEND Internal Medicine Hematology & Oncology
DX: Z51.11 Encounter for antineoplastic chemotherapy (principal); C62.91 Malignant neoplasm of right testis, unspecified whether descended or undescended
CPT/HCPCS: 36415; 80053; 81003; 83735; 85025; 87086; 96361; 96367; 96411; 96413; 96417; J1453; J9040; J9181

== ENCOUNTER 2022-01-10 09:14 | Day surgery (SDC) | payer OTHER ==
[2022-01-10] MEDS ORDERED: SODIUM CHLORIDE 1,000 ML IV ONE ×2 (09:30→13:00)
[2022-01-10] MEDS ORDERED: POTASSIUM CHLORIDE 10 MEQ, MAGNESIUM SULFATE 1 GM in SODIUM CHLORIDE 1,000 ML IV ONE ×2 (09:30→12:30)
[2022-01-10] MEDS ORDERED: PANTOPRAZOLE 20 MG TABLET PO ONE (10:30)
[2022-01-10] MEDS ORDERED: SIMETHICONE 80 MG TAB.CHEW (FP) PO ONE (10:30)
[2022-01-10] MEDS ORDERED: DEXAMETHASONE SODIUM PHOSPHATE 10 MG, ONDANSETRON INJECTION 8 MG in SODIUM CHLORIDE 100 ML IVPB ONE (10:30)
[2022-01-10] MEDS ORDERED: SODIUM CHLORIDE IV ONE (11:00)
[2022-01-10] MEDS ORDERED: CISPLATIN IV ONE (11:00)
[2022-01-10] MEDS ORDERED: SODIUM CHLORIDE 0.9% IV ONE (12:00)
[2022-01-10] MEDS ORDERED: ETOPOSIDE IV ONE (12:00)
[2022-01-10] MEDS ORDERED: MAGNESIUM SULF 50% (8.12 MEQ/2 ML-1 GM VIAL) IVPB ONE (13:00)
[2022-01-10] MEDS ORDERED: KCL 10 MEQ IVPB 10 MEQ/100 ML INFUS.BAG IVPB ONE (13:00)
[2022-01-10 16:32] VITALS: BP 132/81; PULSE 87; TEMP 97.8
== END 2022-01-10 16:00 | disposition home or self-care (01) ==
LOC: JCHEMO 09:14 → J7W 09:14 → JCHEMO 16:00
PROVIDERS: ATTEND Internal Medicine Hematology & Oncology
PROC: 3E04305 Introduction of Other Antineoplastic into Central Vein, Percutaneous Approach (ICD-10-PCS; principal; 2022-01-10)
PROC: 3E043GC Introduction of Other Therapeutic Substance into Central Vein, Percutaneous Approach (ICD-10-PCS; 2022-01-10)
PROC: 3E0437Z Introduction of Electrolytic and Water Balance Substance into Central Vein, Percutaneous Approach (ICD-10-PCS; 2022-01-10)
DX: Z51.11 Encounter for antineoplastic chemotherapy (principal); C62.91 Malignant neoplasm of right testis, unspecified whether descended or undescended
CPT/HCPCS: 96361; 96367; 96368; 96413; 96417; J9181

== ENCOUNTER 2022-01-11 09:11 | Day surgery (SDC) | payer OTHER ==
[~2022-01-11 09:11] MED LIST changes: -BLEOMYCIN SULFATE IVPB ONE; -CISPLATIN IV ONE; -DEXAMETHASONE SODIUM PHOSPHATE 10 MG, ONDANSETRON INJECTION 8 MG in SODIUM CHLORIDE 100 ML IVPB ONE; +DEXAMETHASONE SODIUM PHOSPHATE IVPB ONE; -ETOPOSIDE IV ONE; -FOSAPREPITANT DIMEGLUMINE 150 MG in SODIUM CHLORIDE 145 ML IVPB ONE; +ONDANSETRON IVPB ONE; -POTASSIUM CHLORIDE 10 MEQ, MAGNESIUM SULFATE 1 GM in SODIUM CHLORIDE 1,000 ML IV ONE; -SODIUM CHLORIDE 0.9% IV ONE; -SODIUM CHLORIDE IV ONE; -SODIUM CHLORIDE IVPB ONE; +[UNRECOGNIZED DRUG - OTHER] IVPB ONE
[2022-01-11] MEDS ORDERED: SODIUM CHLORIDE 0.9% IV ONE ×2 (09:30→14:15)
[2022-01-11] MEDS ORDERED: ETOPOSIDE IV ONE ×2 (09:30→14:15)
[2022-01-11] MEDS ORDERED: SODIUM CHLORIDE IV ONE (10:30)
[2022-01-11] MEDS ORDERED: CISPLATIN IV ONE (10:30)
[2022-01-11] MEDS ORDERED: SODIUM CHLORIDE 1,000 ML IV ONE (11:30)
[2022-01-11] MEDS ORDERED: KCL 10 MEQ IVPB 10 MEQ/100 ML INFUS.BAG IVPB ONE (11:30)
[2022-01-11] MEDS ORDERED: MAGNESIUM 1GM/D5W - 1 GM/100 ML IVPB IVPB ONE ×2 (11:30→14:15)
[2022-01-11 15:24] VITALS: BP 117/72; PULSE 87; TEMP 97.8
[2022-01-12] MEDS ORDERED: SODIUM CHLORIDE 1,000 ML IV ONE ×2 (08:00→11:30)
[2022-01-12] MEDS ORDERED: [UNRECOGNIZED DRUG - OTHER] IVPB ONE (09:00)
[2022-01-12] MEDS ORDERED: DEXAMETHASONE SODIUM PHOSPHATE IVPB ONE (09:00)
[2022-01-12] MEDS ORDERED: ONDANSETRON IVPB ONE (09:00)
[2022-01-12] MEDS ORDERED: CISPLATIN IV ONE (09:30)
[2022-01-12] MEDS ORDERED: SODIUM CHLORIDE IV ONE (09:30)
[2022-01-12] MEDS ORDERED: KCL 10 MEQ IVPB 10 MEQ/100 ML INFUS.BAG IVPB ONE (11:30)
== END 2022-01-11 15:31 | disposition home or self-care (01) ==
LOC: JCHEMO 09:11 → J7W 09:12 → JCHEMO 15:31
PROVIDERS: ATTEND Internal Medicine Hematology & Oncology
DX: Z51.11 Encounter for antineoplastic chemotherapy (principal); C62.91 Malignant neoplasm of right testis, unspecified whether descended or undescended
CPT/HCPCS: 96361; 96366; 96367; 96413; 96417

== ENCOUNTER 2022-01-12 08:58 | Day surgery (SDC) | payer OTHER ==
[~2022-01-12 08:58] MED LIST changes: -DEXAMETHASONE SODIUM PHOSPHATE IVPB ONE; -ONDANSETRON IVPB ONE; -[UNRECOGNIZED DRUG - OTHER] IVPB ONE
[2022-01-12] MEDS ORDERED: [UNRECOGNIZED DRUG - OTHER] IVPB ONE (09:30)
[2022-01-12] MEDS ORDERED: DEXAMETHASONE SODIUM PHOSPHATE IVPB ONE (09:30)
[2022-01-12] MEDS ORDERED: ONDANSETRON IVPB ONE (09:30)
[2022-01-12 09:49] LABS: BASO % 0.3 % (0-2.0); HEMOGLOBIN 11.3 GM/dL (11.7-16.9); LYMPH % 16.6 % (8-40); MCH 28.9 pg (25.7-33.7); MCHC 34.2 g/dl (32.0-35.9); MEAN CELL VOLUME 84.5 fl (80-96); MEAN PLT VOLUME 7.4 fl (7.5-11.1); MONO % 2.8 % (3.8-10.2); NEUT % 80.3 % (42.8-82.8); PLATELET COUNT 242 10^3/uL (134-434); RBC 3.91 M/mm3 (4.00-5.60); RDW 20.8 % (11.9-15.9); WHITE BLOOD COUNT 12.5 K/mm3 (4.0-10.0)
[2022-01-12] MEDS ORDERED: ETOPOSIDE IV ONE (10:00)
[2022-01-12] MEDS ORDERED: SODIUM CHLORIDE 0.9% IV ONE (10:00)
[2022-01-12 10:07] LABS: CALCIUM 8.4 mg/dL (8.5-10.1)
[2022-01-12 10:08] LABS: BLOOD UREA NITROGEN 19.4 mg/dL (7-18); MAGNESIUM 1.8 mg/dL (1.8-2.4)
[2022-01-12 10:11] LABS: CREATININE 1.1 mg/dL (0.55-1.3)
[2022-01-12 10:12] LABS: BILIRUBIN,TOTAL 0.2 mg/dL (0.2-1)
[2022-01-12] MEDS ORDERED: SODIUM CHLORIDE IV ONE (11:00)
[2022-01-12] MEDS ORDERED: CISPLATIN IV ONE (11:00)
[2022-01-12 11:23] LABS: ANISOCYTOSIS 1+; MACROCYTOSIS 0; OVALOCYTE 1+
[2022-01-12] MEDS ORDERED: SODIUM CHLORIDE 1,000 ML IV ONE (12:00)
[2022-01-12] MEDS ORDERED: MAGNESIUM 1GM/D5W - 1 GM/100 ML IVPB IVPB ONE (12:00)
[2022-01-12] MEDS ORDERED: KCL 10 MEQ IVPB 10 MEQ/100 ML INFUS.BAG IVPB ONE (12:00)
[2022-01-12 16:59] VITALS: TEMP 98.2
[2022-01-12 17:05] VITALS: BP 141/91; PULSE 59
== END 2022-01-12 15:00 | disposition home or self-care (01) ==
LOC: JCHEMO 08:58 → J7W 08:59 → JCHEMO 15:00
PROVIDERS: ATTEND Internal Medicine Hematology & Oncology
PROC: 3E04305 Introduction of Other Antineoplastic into Central Vein, Percutaneous Approach (ICD-10-PCS; principal; 2022-01-12)
PROC: 3E043GC Introduction of Other Therapeutic Substance into Central Vein, Percutaneous Approach (ICD-10-PCS; 2022-01-12)
PROC: 3E0437Z Introduction of Electrolytic and Water Balance Substance into Central Vein, Percutaneous Approach (ICD-10-PCS; 2022-01-12)
DX: Z51.11 Encounter for antineoplastic chemotherapy (principal); C62.91 Malignant neoplasm of right testis, unspecified whether descended or undescended
CPT/HCPCS: 36415; 80053; 83735; 85025; 96361; 96367; 96368; 96413; 96417

== ENCOUNTER 2022-01-15 08:54 | Day surgery (SDC) | payer OTHER ==
[2022-01-15] MEDS ORDERED: SODIUM CHLORIDE 250 ML IV ONE (09:00)
[2022-01-15] MEDS ORDERED: DEXAMETHASONE SODIUM PHOSPHATE 10 MG, ONDANSETRON INJECTION 8 MG in SODIUM CHLORIDE 100 ML IVPB ONE (09:30)
[2022-01-15 09:40] VITALS: BP 142/93; PULSE 99
[2022-01-15 09:52] LABS: BASO % 0.1 % (0-2.0); EOS % 1.9 % (0-4.5); HEMATOCRIT 33.9 % (35.4-49); HEMOGLOBIN 11.8 GM/dL (11.7-16.9); LYMPH % 16.6 % (8-40); MCH 28.8 pg (25.7-33.7); MCHC 34.8 g/dl (32.0-35.9); MEAN PLT VOLUME 7.1 fl (7.5-11.1); MONO % 0.4 % (3.8-10.2); PLATELET COUNT 254 10^3/uL (134-434); RBC 4.08 M/mm3 (4.00-5.60); RDW 20.5 % (11.9-15.9)
[2022-01-15] MEDS ORDERED: SODIUM CHLORIDE IVPB ONE (10:00)
[2022-01-15] MEDS ORDERED: BLEOMYCIN SULFATE IVPB ONE (10:00)
[2022-01-15 10:12] LABS: ALBUMIN 3.5 g/dl (3.4-5.0); BLOOD UREA NITROGEN 21.9 mg/dL (7-18)
[2022-01-15 10:15] LABS: CREATININE 1.2 mg/dL (0.55-1.3)
[2022-01-15 10:17] LABS: BILIRUBIN,TOTAL 0.5 mg/dL (0.2-1); TOT PROT 6.6 g/dl (6.4-8.2)
[2022-01-15 17:07] VITALS: TEMP 98.5
== END 2022-01-15 12:30 | disposition home or self-care (01) ==
LOC: JCHEMO 08:54 → J7W 08:55 → JCHEMO 12:30
PROVIDERS: ATTEND Internal Medicine Hematology & Oncology
PROC: 3E03305 Introduction of Other Antineoplastic into Peripheral Vein, Percutaneous Approach (ICD-10-PCS; principal; 2022-01-15)
PROC: 3E033GC Introduction of Other Therapeutic Substance into Peripheral Vein, Percutaneous Approach (ICD-10-PCS; 2022-01-15)
DX: Z51.11 Encounter for antineoplastic chemotherapy (principal); C62.91 Malignant neoplasm of right testis, unspecified whether descended or undescended
CPT/HCPCS: 36415; 80053; 85025; 87086; 96365; 96409; J2405; J9040

== ENCOUNTER 2022-01-18 16:39 | Inpatient (IN) | payer OTHER ==
[2022-01-18] MEDS ORDERED: SODIUM CHLORIDE IV ONE (17:15)
[2022-01-18] MEDS ORDERED: VANCOMYCIN 1 GM in D5W (PRE-DOCKED) 1,000 MG/250 ML IVPB ONE (17:49)
[2022-01-18] MEDS ORDERED: PIPERACILLIN/TAZOB 4.5 GM 4.5 GM in DEXTROSE 5%-WATER 100 ML IVPB ONE (17:49)
[2022-01-18] MEDS ORDERED: VANCOMYCIN 1 GRAM (PRE-DOCKED) 1,000 MG/250 ML BAG IVPB ONE (17:58)
[2022-01-18] MEDS ORDERED: PIPERACILLIN/TAZOB 4.5 GM 4.5 GM/100 ML BAG IVPB ONE (17:58)
[2022-01-18] MEDS ORDERED: ALBUTEROL SO4 2.5/IPRATROPIUM 0.5 INH SOL 3 ML VIAL.NEB. NEB ONE ×3 (18:00→19:09)
[2022-01-18 18:35] LABS: VENOUS BASE EXCESS 2.7 mmol/L (-2-2); VENOUS O2 SATURATION 94.6 % (70-80); VENOUS PCO2 32.2 mmHg (38-52); VENOUS PH 7.512 (7.310-7.410)
[2022-01-18 18:37] LABS: URINE APPEARANCE CLEAR; URINE BILIRUBIN NEGATIVE (NEGATIVE); URINE COLOR YELLOW; URINE GLUCOSE (UA) NEGATIVE (NEGATIVE); URINE KETONE NEGATIVE (NEGATIVE); URINE LEUK ESTERASE NEGATIVE (NEGATIVE); URINE NITRITE NEGATIVE (NEGATIVE); URINE PROTEIN NEGATIVE (NEGATIVE); URINE UROBILINOGEN 0.2 mg/dL (0.2-1.0)
[2022-01-18 18:42] LABS: INR 0.94 (0.83-1.09); PROTHROMBIN TIME (PATIENT) 10.8 SEC (9.7-13.0)
[2022-01-18 18:45] LABS: ACTIVATED PTT 28.7 SECONDS (25.2-36.5)
[2022-01-18 18:54] LABS: BASO % 0.8 % (0-2.0); EOS % 2.6 % (0-4.5); HEMATOCRIT 33.1 % (35.4-49); HEMOGLOBIN 11.2 GM/dL (11.7-16.9); LYMPH % 28.5 % (8-40); MCH 28.8 pg (25.7-33.7); MEAN CELL VOLUME 84.8 fl (80-96); MEAN PLT VOLUME 7.2 fl (7.5-11.1); MONO % 2.6 % (3.8-10.2); NEUT % 65.5 % (42.8-82.8); PLATELET COUNT 176 10^3/uL (134-434); RDW 20.7 % (11.9-15.9); WHITE BLOOD COUNT 5.7 K/mm3 (4.0-10.0)
[2022-01-18 18:55] LABS: CHLORIDE 101 mmol/L (98-107); SODIUM 136 mmol/L (136-145)
[2022-01-18 18:57] LABS: ALBUMIN 3.3 g/dl (3.4-5.0); ANION GAP 10 MMOL/L (8-16); BLOOD UREA NITROGEN 18.2 mg/dL (7-18); CALCIUM 8.9 mg/dL (8.5-10.1); CO2 25 mmol/L (21-32); GLUCOSE,RANDOM 89 mg/dL (74-106)
[2022-01-18 19:00] LABS: SGOT/AST 16 U/L (15-37); SGPT/ALT 16 U/L (13-61)
[2022-01-18 19:02] LABS: BILIRUBIN,TOTAL 0.5 mg/dL (0.2-1); TOT PROT 6.7 g/dl (6.4-8.2)
[2022-01-18 19:03] LABS: ALK PHOS 70 U/L (45-117)
[2022-01-18] MEDS ORDERED: SODIUM CHLORIDE 0.9% 500 ML INFUS.BAG IV ONE (19:09)
[2022-01-18] MEDS ORDERED: ACETAMINOPHEN 1000 MG/100 ML BAG IVPB ONE (19:45)
[2022-01-18] MEDS ORDERED: ACETAMINOPHEN INJECTION 100 ML IVPB ONE (19:53)
[2022-01-18 19:56] LABS: ANISOCYTOSIS 3+; MACROCYTOSIS 1+; PLATELET ESTIMATE NORMAL
[2022-01-18] MEDS ORDERED: ALBUTEROL SO4 HFA INHALER IH PRN (23:17)
[2022-01-19 00:02] VITALS: BMI 38.8
[2022-01-19] MEDS: ACETAMINOPHEN 1000 MG/100 ML BAG IVPB PRN ×4 (01:02→23:12)
[2022-01-19 08:00] LABS: BASO % 0.6 % (0-2.0); EOS % 1.7 % (0-4.5); HEMOGLOBIN 10.4 GM/dL (11.7-16.9); LYMPH % 36.1 % (8-40); MCHC 34.6 g/dl (32.0-35.9); MEAN CELL VOLUME 83.9 fl (80-96); MEAN PLT VOLUME 6.7 fl (7.5-11.1); NEUT % 58.6 % (42.8-82.8); PLATELET COUNT 146 10^3/uL (134-434); RBC 3.57 M/mm3 (4.00-5.60); RDW 20.2 % (11.9-15.9); WHITE BLOOD COUNT 4.9 K/mm3 (4.0-10.0)
[2022-01-19 08:18] LABS: ALBUMIN 3.1 g/dl (3.4-5.0); BLOOD UREA NITROGEN 13.7 mg/dL (7-18); CALCIUM 8.4 mg/dL (8.5-10.1)
[2022-01-19 08:21] LABS: CREATININE 0.9 mg/dL (0.55-1.3)
[2022-01-19 08:22] LABS: BILIRUBIN,TOTAL 0.4 mg/dL (0.2-1)
[2022-01-19] MEDS ORDERED: PATIENT'S OWN MEDICATION (NON-FORMULARY) (Losartan/Hydrochlorothiazide [Losartan-Hctz 100- PO SCH (10:00)
[2022-01-19] MEDS ORDERED: DEXTROSE 5%-WATER - 50 ML IVPB ONE (10:34)
[2022-01-19] MEDS ORDERED: cefTRIAXone SODIUM 1 GM VIAL ONE (10:34)
[2022-01-19] MEDS: LOSARTAN POTASSIUM 50 MG TABLET PO SCH (11:02)
[2022-01-19] MEDS: HYDROCHLOROTHIAZIDE 12.5 MG CAPSULE (FP) PO SCH (11:02)
[2022-01-19] MEDS: CEFTRIAXONE 1 GM in DEXTROSE 5%-WATER - 50 ML IVPB SCH (11:03)
[2022-01-19] MEDS: BUDESONIDE/FORMETEROL FUMARATE 80/4.5 mcg INHALER IH SCH ×2 (13:11→21:14)
[2022-01-19] MEDS: oxyCODONE HCL 5 MG TABLET PO PRN ×2 (17:01→22:14)
[2022-01-19] MEDS: MONTELUKAST NA 10 MG TABLET PO SCH (21:12)
[2022-01-20] MEDS: oxyCODONE HCL 5 MG TABLET PO PRN ×4 (03:39→17:08)
[2022-01-20] MEDS: ACETAMINOPHEN 1000 MG/100 ML BAG IVPB PRN ×2 (05:57→20:00)
[2022-01-20] MEDS ORDERED: cefTRIAXone SODIUM 1 GM VIAL ONE (08:28)
[2022-01-20] MEDS ORDERED: DEXTROSE 5%-WATER - 50 ML IVPB ONE (08:29)
[2022-01-20] MEDS: CEFTRIAXONE 1 GM in DEXTROSE 5%-WATER - 50 ML IVPB SCH (09:46)
[2022-01-20] MEDS: HYDROCHLOROTHIAZIDE 12.5 MG CAPSULE (FP) PO SCH (09:46)
[2022-01-20] MEDS: LOSARTAN POTASSIUM 50 MG TABLET PO SCH (09:46)
[2022-01-20] MEDS: BUDESONIDE/FORMETEROL FUMARATE 80/4.5 mcg INHALER IH SCH ×2 (09:47→22:36)
[2022-01-20] MEDS ORDERED: ONDANSETRON 4 MG/2 ML VIAL IVPUSH ONE (13:00)
[2022-01-20] MEDS: MONTELUKAST NA 10 MG TABLET PO SCH (22:36)
[2022-01-21] MEDS: oxyCODONE HCL 5 MG TABLET PO PRN ×4 (00:59→19:33)
[2022-01-21] MEDS ORDERED: cefTRIAXone SODIUM 1 GM VIAL ONE (08:06)
[2022-01-21] MEDS ORDERED: DEXTROSE 5%-WATER - 50 ML IVPB ONE (08:06)
[2022-01-21] MEDS: ACETAMINOPHEN 1000 MG/100 ML BAG IVPB PRN ×2 (08:17→13:52)
[2022-01-21] MEDS: CEFTRIAXONE 1 GM in DEXTROSE 5%-WATER - 50 ML IVPB SCH (09:00)
[2022-01-21] MEDS: HYDROCHLOROTHIAZIDE 12.5 MG CAPSULE (FP) PO SCH (09:00)
[2022-01-21] MEDS: LOSARTAN POTASSIUM 50 MG TABLET PO SCH (09:00)
[2022-01-21] MEDS: BUDESONIDE/FORMETEROL FUMARATE 80/4.5 mcg INHALER IH SCH ×2 (09:01→22:28)
[2022-01-21] MEDS: ALBUTEROL SO4 2.5/IPRATROPIUM 0.5 INH SOL 3 ML VIAL.NEB. NEB PRN (17:21)
[2022-01-21] MEDS: MONTELUKAST NA 10 MG TABLET PO SCH (22:28)
[2022-01-22] MEDS: ACETAMINOPHEN 1000 MG/100 ML BAG IVPB PRN ×3 (00:20→18:46)
[2022-01-22] MEDS: methylPREDNISolone NA SUCC 40 MG/1 ML VIAL IVPUSH SCH ×4 (00:20→18:56)
[2022-01-22] MEDS: oxyCODONE HCL 5 MG TABLET PO PRN ×4 (05:12→21:38)
[2022-01-22] MEDS ORDERED: cefTRIAXone SODIUM 1 GM VIAL ONE (09:25)
[2022-01-22] MEDS ORDERED: DEXTROSE 5%-WATER - 50 ML IVPB ONE (09:25)
[2022-01-22 09:28] LABS: BASO % 0.2 % (0-2.0); EOS % 0.1 % (0-4.5); HEMOGLOBIN 11.3 GM/dL (11.7-16.9); LYMPH % 24.6 % (8-40); MCHC 34.3 g/dl (32.0-35.9); MEAN CELL VOLUME 84.3 fl (80-96); MEAN PLT VOLUME 7.6 fl (7.5-11.1); MONO % 1.5 % (3.8-10.2); NEUT % 73.6 % (42.8-82.8); PLATELET COUNT 136 10^3/uL (134-434); RBC 3.91 M/mm3 (4.00-5.60); RDW 20.3 % (11.9-15.9); WHITE BLOOD COUNT 2.6 K/mm3 (4.0-10.0)
[2022-01-22 09:29] LABS: ALBUMIN 3.7 g/dl (3.4-5.0); BLOOD UREA NITROGEN 15.2 mg/dL (7-18); CALCIUM 9.3 mg/dL (8.5-10.1)
[2022-01-22] MEDS: LOSARTAN POTASSIUM 50 MG TABLET PO SCH (09:31)
[2022-01-22] MEDS: HYDROCHLOROTHIAZIDE 12.5 MG CAPSULE (FP) PO SCH (09:31)
[2022-01-22] MEDS: CEFTRIAXONE 1 GM in DEXTROSE 5%-WATER - 50 ML IVPB SCH (09:32)
[2022-01-22] MEDS: ALBUTEROL SO4 2.5/IPRATROPIUM 0.5 INH SOL 3 ML VIAL.NEB. NEB PRN (09:32)
[2022-01-22 09:33] LABS: CREATININE 1.2 mg/dL (0.55-1.3)
[2022-01-22 09:34] LABS: BILIRUBIN,TOTAL 0.3 mg/dL (0.2-1); TOT PROT 7.2 g/dl (6.4-8.2)
[2022-01-22] MEDS: BUDESONIDE/FORMETEROL FUMARATE 80/4.5 mcg INHALER IH SCH ×2 (10:04→21:33)
[2022-01-22] MEDS: ALBUTEROL SO4 2.5/IPRATROPIUM 0.5 INH SOL 3 ML VIAL.NEB. NEB SCH ×3 (15:18→20:10)
[2022-01-22] MEDS: MONTELUKAST NA 10 MG TABLET PO SCH (21:32)
[2022-01-23] MEDS: ACETAMINOPHEN 1000 MG/100 ML BAG IVPB PRN ×2 (00:46→08:31)
[2022-01-23] MEDS: methylPREDNISolone NA SUCC 40 MG/1 ML VIAL IVPUSH SCH ×3 (01:06→17:01)
[2022-01-23] MEDS: oxyCODONE HCL 5 MG TABLET PO PRN ×4 (03:57→20:42)
[2022-01-23] MEDS: ALBUTEROL SO4 2.5/IPRATROPIUM 0.5 INH SOL 3 ML VIAL.NEB. NEB SCH ×4 (07:27→19:39)
[2022-01-23] MEDS ORDERED: cefTRIAXone SODIUM 1 GM VIAL ONE (09:42)
[2022-01-23] MEDS ORDERED: DEXTROSE 5%-WATER - 50 ML IVPB ONE (09:42)
[2022-01-23] MEDS: CEFTRIAXONE 1 GM in DEXTROSE 5%-WATER - 50 ML IVPB SCH (10:00)
[2022-01-23] MEDS: HYDROCHLOROTHIAZIDE 12.5 MG CAPSULE (FP) PO SCH (10:00)
[2022-01-23] MEDS: BUDESONIDE/FORMETEROL FUMARATE 80/4.5 mcg INHALER IH SCH ×2 (10:00→22:06)
[2022-01-23] MEDS: LOSARTAN POTASSIUM 50 MG TABLET PO SCH (10:00)
[2022-01-23 11:06] LABS: EPI CELLS 2 /uL (0-25.1); HYALINE CASTS 0 /uL (0-3.1); URINE APPEARANCE CLEAR; URINE BACTERIA 0 /uL (0-1359); URINE BILIRUBIN NEGATIVE (NEGATIVE); URINE COLOR YELLOW; URINE GLUCOSE (UA) NEGATIVE (NEGATIVE); URINE KETONE NEGATIVE (NEGATIVE); URINE LEUK ESTERASE NEGATIVE (NEGATIVE); URINE NITRITE NEGATIVE (NEGATIVE); URINE PROTEIN NEGATIVE (NEGATIVE); URINE RBC 6 /uL (0-23.9); URINE UROBILINOGEN 0.2 mg/dL (0.2-1.0); URINE WBC 3 /uL (0-25.8)
[2022-01-23] MEDS ORDERED: ACETAMINOPHEN 500 MG TABLET (FP) PO PRN (16:03)
[2022-01-23] MEDS: MONTELUKAST NA 10 MG TABLET PO SCH (22:05)
[2022-01-24] MEDS: methylPREDNISolone NA SUCC 40 MG/1 ML VIAL IVPUSH SCH ×3 (01:44→10:05)
[2022-01-24 06:46] VITALS: TEMP 98.7
[2022-01-24] MEDS: oxyCODONE HCL 5 MG TABLET PO PRN (07:07)
[2022-01-24] MEDS: ALBUTEROL SO4 2.5/IPRATROPIUM 0.5 INH SOL 3 ML VIAL.NEB. NEB SCH ×2 (07:30→11:30)
[2022-01-24] MEDS ORDERED: cefTRIAXone SODIUM 1 GM VIAL ONE (08:57)
[2022-01-24] MEDS ORDERED: DEXTROSE 5%-WATER - 50 ML IVPB ONE (08:57)
[2022-01-24] MEDS: HYDROCHLOROTHIAZIDE 12.5 MG CAPSULE (FP) PO SCH (09:52)
[2022-01-24] MEDS: CEFTRIAXONE 1 GM in DEXTROSE 5%-WATER - 50 ML IVPB SCH ×2 (09:52→10:05)
[2022-01-24] MEDS: LOSARTAN POTASSIUM 50 MG TABLET PO SCH (09:52)
[2022-01-24] MEDS: BUDESONIDE/FORMETEROL FUMARATE 80/4.5 mcg INHALER IH SCH (09:53)
[2022-01-24] MEDS ORDERED: predniSONE 20 MG TABLET (UD) PO ONE (10:39)
[2022-01-24 11:26] VITALS: BP 150/92; PULSE 77
== END 2022-01-24 13:35 | disposition home or self-care (01) | DRG 202 ==
LOC: JER 16:39 → JERBED 17:54 → J7W 22:28
PROVIDERS: ADMIT Internal Medicine; ATTEND Internal Medicine
DX: J45.901 Unspecified asthma with (acute) exacerbation (principal); D84.9 Immunodeficiency, unspecified; I10 Essential (primary) hypertension; K59.09 Other constipation; M32.9 Systemic lupus erythematosus, unspecified; N28.9 Disorder of kidney and ureter, unspecified; Z85.47 Personal history of malignant neoplasm of testis; F17.200 Nicotine dependence, unspecified, uncomplicated
CPT/HCPCS: 36415; 71045-TC-FY; 71250-TC; 74176-TC; 76700-TC; 80053; 81003; 82550; 82553; 82803; 83605; 84484; 85025; 85610; 85730; 86850; 86900; 86901; 87040; 87086; 87804; 87807; 93005; 93010; 94640; 94761; 99285-25; C9803-CS; U0003; U0005

== ENCOUNTER 2022-02-12 09:43 | Day surgery (SDC) | payer OTHER ==
[~2022-02-12 09:43] MED LIST changes: +BLEOMYCIN SULFATE IVPB ONE; +CISPLATIN IV ONE; +DEXAMETHASONE SODIUM PHOSPHATE 10 MG, ONDANSETRON INJECTION 8 MG in SODIUM CHLORIDE 100 ML IVPB ONE; +FOSAPREPITANT DIMEGLUMINE 150 MG in SODIUM CHLORIDE 145 ML IVPB ONE; +SODIUM CHLORIDE 250 ML IV ONE; +SODIUM CHLORIDE IV ONE; +SODIUM CHLORIDE IVPB ONE
[2022-02-12] MEDS ORDERED: SODIUM CHLORIDE IV ONE (10:30)
[2022-02-12] MEDS ORDERED: ETOPOSIDE IV ONE (10:30)
[2022-02-12 11:14] LABS: HEMOGLOBIN 10.6 GM/dL (11.7-16.9); MCH 30.4 pg (25.7-33.7); MCHC 34.2 g/dl (32.0-35.9); MEAN PLT VOLUME 7.2 fl (7.5-11.1); PLATELET COUNT 177 10^3/uL (134-434); RBC 3.48 M/mm3 (4.00-5.60); RDW 22.3 % (11.9-15.9); WHITE BLOOD COUNT 15.2 K/mm3 (4.0-10.0)
[2022-02-12 11:31] LABS: CALCIUM 8.5 mg/dL (8.5-10.1)
[2022-02-12 11:32] LABS: ALBUMIN 3.1 g/dl (3.4-5.0); BLOOD UREA NITROGEN 22.7 mg/dL (7-18); MAGNESIUM 1.7 mg/dL (1.8-2.4)
[2022-02-12 11:34] LABS: BILIRUBIN,DIRECT 0.1 mg/dL (0.0-0.2); CREATININE 1.1 mg/dL (0.55-1.3)
[2022-02-12 11:36] LABS: BILIRUBIN,TOTAL 0.2 mg/dL (0.2-1); TOT PROT 6.2 g/dl (6.4-8.2)
[2022-02-12 11:52] LABS: ANISOCYTOSIS 1+; MACROCYTOSIS 1+
[2022-02-12] MEDS ORDERED: POTASSIUM CHLORIDE 10 MEQ, MAGNESIUM SULFATE 1 GM in SODIUM CHLORIDE 1,000 ML IV ONE (13:00)
[2022-02-12] MEDS ORDERED: MAGNESIUM 1GM/D5W - 1 GM/100 ML IVPB IVPB ONE (14:30)
[2022-02-12] MEDS ORDERED: POTASSIUM CHLORIDE TABS 20 MEQ TABLET.ER (FP) PO ONE ×2 (14:30→17:00)
[2022-02-12 18:07] VITALS: BP 107/69; PULSE 85; TEMP 97.6
[2022-02-12] MEDS ORDERED: PORTA CATH FLUSH 10 ML IVPUSH PRN (18:07)
== END 2022-02-12 18:24 | disposition home or self-care (01) ==
LOC: JCHEMO 09:43 → J7W 09:44 → JCHEMO 18:24
PROVIDERS: ATTEND Internal Medicine Hematology & Oncology
PROC: 3E04305 Introduction of Other Antineoplastic into Central Vein, Percutaneous Approach (ICD-10-PCS; principal; 2022-02-12)
PROC: 3E043GC Introduction of Other Therapeutic Substance into Central Vein, Percutaneous Approach (ICD-10-PCS; 2022-02-12)
PROC: 3E0437Z Introduction of Electrolytic and Water Balance Substance into Central Vein, Percutaneous Approach (ICD-10-PCS; 2022-02-12)
PROC: 3E04305 Introduction of Other Antineoplastic into Central Vein, Percutaneous Approach (ICD-10-PCS; 2022-02-12)
DX: Z51.11 Encounter for antineoplastic chemotherapy (principal); C62.91 Malignant neoplasm of right testis, unspecified whether descended or undescended
CPT/HCPCS: 36415; 80048; 80076; 82105; 83615; 83735; 84100; 84702; 85025; 96361; 96367; 96409; 96413; 96415; 96417; J1453; J9040; J9181

== ENCOUNTER 2022-02-13 09:36 | Day surgery (SDC) | payer OTHER ==
[~2022-02-13 09:36] MED LIST changes: -BLEOMYCIN SULFATE IVPB ONE; -FOSAPREPITANT DIMEGLUMINE 150 MG in SODIUM CHLORIDE 145 ML IVPB ONE; -SODIUM CHLORIDE 250 ML IV ONE; -SODIUM CHLORIDE IVPB ONE
[2022-02-13] MEDS ORDERED: ETOPOSIDE IV ONE (10:00)
[2022-02-13] MEDS ORDERED: SODIUM CHLORIDE IV ONE (10:00)
[2022-02-13] MEDS ORDERED: POTASSIUM CHLORIDE 10 MEQ, MAGNESIUM SULFATE 1 GM in SODIUM CHLORIDE 1,000 ML IV ONE (11:00)
[2022-02-13 16:46] VITALS: BP 139/78; PULSE 71; TEMP 97.7
== END 2022-02-13 15:30 | disposition home or self-care (01) ==
LOC: JCHEMO 09:36 → J7W 09:37 → JCHEMO 15:30
PROVIDERS: ATTEND Internal Medicine Hematology & Oncology
PROC: 3E04305 Introduction of Other Antineoplastic into Central Vein, Percutaneous Approach (ICD-10-PCS; principal; 2022-02-13)
PROC: 3E043GC Introduction of Other Therapeutic Substance into Central Vein, Percutaneous Approach (ICD-10-PCS; 2022-02-13)
PROC: 3E0437Z Introduction of Electrolytic and Water Balance Substance into Central Vein, Percutaneous Approach (ICD-10-PCS; 2022-02-13)
DX: Z51.11 Encounter for antineoplastic chemotherapy (principal); C62.91 Malignant neoplasm of right testis, unspecified whether descended or undescended
CPT/HCPCS: 96361; 96367; 96413; 96415; 96417; J9181

== ENCOUNTER 2022-02-14 10:22 | Day surgery (SDC) | payer OTHER ==
[~2022-02-14 10:22] MED LIST changes: +ETOPOSIDE IV ONE
[2022-02-14] MEDS ORDERED: POTASSIUM CHLORIDE 10 MEQ, MAGNESIUM SULFATE 1 GM in SODIUM CHLORIDE 1,000 ML IV ONE (11:00)
[2022-02-14 16:56] VITALS: BP 132/78; PULSE 81; TEMP 98.2
== END 2022-02-14 15:35 | disposition home or self-care (01) ==
LOC: JCHEMO 10:22 → J7W 10:23 → JCHEMO 15:35
PROVIDERS: ATTEND Internal Medicine Hematology & Oncology
DX: Z51.11 Encounter for antineoplastic chemotherapy (principal); C62.91 Malignant neoplasm of right testis, unspecified whether descended or undescended
CPT/HCPCS: 96361; 96367; 96413; 96415; 96417; J9181

== ENCOUNTER 2022-02-15 09:16 | Day surgery (SDC) | payer OTHER ==
[~2022-02-15 09:16] MED LIST changes: -ETOPOSIDE IV ONE
[2022-02-15] MEDS ORDERED: SODIUM CHLORIDE IV ONE (10:00)
[2022-02-15] MEDS ORDERED: ETOPOSIDE IV ONE (10:00)
[2022-02-15] MEDS ORDERED: POTASSIUM CHLORIDE 10 MEQ, MAGNESIUM SULFATE 1 GM in SODIUM CHLORIDE 1,000 ML IV ONE (11:00)
[2022-02-15 18:05] VITALS: BP 130/71; PULSE 80; TEMP 97.7
== END 2022-02-15 16:00 | disposition home or self-care (01) ==
LOC: JCHEMO 09:16 → J7W 09:16 → JCHEMO 16:00
PROVIDERS: ATTEND Internal Medicine Hematology & Oncology
DX: Z51.11 Encounter for antineoplastic chemotherapy (principal); C62.91 Malignant neoplasm of right testis, unspecified whether descended or undescended
CPT/HCPCS: 96361; 96367; 96413; 96415; 96417; J9181

== ENCOUNTER 2022-02-16 11:28 | Day surgery (SDC) | payer OTHER ==
[2022-02-16 10:04] LABS: EOS % 0.1 % (0-4.5); HEMATOCRIT 30.2 % (35.4-49); HEMOGLOBIN 10.3 GM/dL (11.7-16.9); LYMPH % 19.7 % (8-40); MCH 30.5 pg (25.7-33.7); MCHC 34.1 g/dl (32.0-35.9); MEAN CELL VOLUME 89.3 fl (80-96); MEAN PLT VOLUME 7.4 fl (7.5-11.1); MONO % 1.7 % (3.8-10.2); NEUT % 77.5 % (42.8-82.8); PLATELET COUNT 207 10^3/uL (134-434); RBC 3.38 M/mm3 (4.00-5.60); RDW 22.4 % (11.9-15.9); WHITE BLOOD COUNT 12.1 K/mm3 (4.0-10.0)
[2022-02-16 10:20] LABS: CALCIUM 8.6 mg/dL (8.5-10.1)
[2022-02-16 10:21] LABS: ALBUMIN 3.1 g/dl (3.4-5.0); BLOOD UREA NITROGEN 30.4 mg/dL (7-18); MAGNESIUM 1.4 mg/dL (1.8-2.4)
[2022-02-16 10:23] LABS: BILIRUBIN,DIRECT 0.1 mg/dL (0.0-0.2)
[2022-02-16 10:24] LABS: CREATININE 1.3 mg/dL (0.55-1.3); PHOSPHOROUS 3.7 mg/dL (2.5-4.9)
[2022-02-16 10:25] LABS: BILIRUBIN,TOTAL 0.3 mg/dL (0.2-1); TOT PROT 5.9 g/dl (6.4-8.2)
[2022-02-16 11:09] LABS: ANISOCYTOSIS 0; MACROCYTOSIS 0
[~2022-02-16 11:28] MED LIST changes: +DEXAMETHASONE INJECTION 10 MG in SODIUM CHLORIDE 50 ML IVPB ONE; +ETOPOSIDE IV ONE; +PALONOSETRON HCL 0.25 MG/5 ML VIAL IVPUSH ONE
[2022-02-16] MEDS ORDERED: POTASSIUM CHLORIDE 10 MEQ, MAGNESIUM SULFATE 1 GM in SODIUM CHLORIDE 1,000 ML IV ONE (12:00)
[2022-02-16 16:53] VITALS: BP 137/93; PULSE 78; TEMP 97.7
== END 2022-02-16 16:45 | disposition home or self-care (01) ==
LOC: JCHEMO 11:28 → J7W 11:29 → JCHEMO 16:45
PROVIDERS: ATTEND Internal Medicine Hematology & Oncology
DX: Z51.11 Encounter for antineoplastic chemotherapy (principal); C62.91 Malignant neoplasm of right testis, unspecified whether descended or undescended
CPT/HCPCS: 36415; 80048; 80076; 83615; 83735; 84100; 85025; 96361; 96367; 96375; 96413; 96415; 96417; J1100; J2469; J9181

== ENCOUNTER 2022-02-19 09:30 | Day surgery (SDC) | payer OTHER ==
[2022-02-19] MEDS ORDERED: SODIUM CHLORIDE 250 ML IV ONE (10:00)
[2022-02-19] MEDS ORDERED: DEXAMETHASONE SODIUM PHOSPHATE 10 MG, ONDANSETRON INJECTION 8 MG in SODIUM CHLORIDE 100 ML IVPB ONE (10:00)
[2022-02-19] MEDS ORDERED: BLEOMYCIN SULFATE IVPB ONE (10:30)
[2022-02-19] MEDS ORDERED: SODIUM CHLORIDE IVPB ONE (10:30)
[2022-02-19 17:49] VITALS: TEMP 98.1
[2022-02-19 18:13] VITALS: BP 130/81; PULSE 94
== END 2022-02-19 12:30 | disposition home or self-care (01) ==
LOC: JCHEMO 09:30 → J7W 09:40 → JCHEMO 12:30
PROVIDERS: ATTEND Internal Medicine Hematology & Oncology
PROC: 3E03305 Introduction of Other Antineoplastic into Peripheral Vein, Percutaneous Approach (ICD-10-PCS; principal; 2022-02-19)
PROC: 3E033GC Introduction of Other Therapeutic Substance into Peripheral Vein, Percutaneous Approach (ICD-10-PCS; 2022-02-19)
DX: Z51.11 Encounter for antineoplastic chemotherapy (principal); C62.91 Malignant neoplasm of right testis, unspecified whether descended or undescended
CPT/HCPCS: 96361; 96365; 96409; J9040

== ENCOUNTER 2022-02-26 12:49 | Day surgery (SDC) | payer OTHER ==
[2022-02-26 10:46] LABS: BASO % 1.1 % (0-2.0); EOS % 0.6 % (0-4.5); HEMATOCRIT 27.6 % (35.4-49); HEMOGLOBIN 9.4 GM/dL (11.7-16.9); LYMPH % 55.7 % (8-40); MCH 31.6 pg (25.7-33.7); MCHC 34.2 g/dl (32.0-35.9); MEAN CELL VOLUME 92.3 fl (80-96); MEAN PLT VOLUME 7.8 fl (7.5-11.1); MONO % 5.1 % (3.8-10.2); NEUT % 37.5 % (42.8-82.8); PLATELET COUNT 78 10^3/uL (134-434); RBC 2.99 M/mm3 (4.00-5.60); RDW 19.2 % (11.9-15.9); WHITE BLOOD COUNT 2.3 K/mm3 (4.0-10.0)
[2022-02-26 11:11] LABS: ALBUMIN 3.3 g/dl (3.4-5.0); BLOOD UREA NITROGEN 16.4 mg/dL (7-18); CALCIUM 8.6 mg/dL (8.5-10.1); MAGNESIUM 1.4 mg/dL (1.8-2.4)
[2022-02-26 11:14] LABS: BILIRUBIN,DIRECT 0.1 mg/dL (0.0-0.2); CREATININE 1.5 mg/dL (0.55-1.3); PHOSPHOROUS 3.4 mg/dL (2.5-4.9)
[2022-02-26 11:16] LABS: BILIRUBIN,TOTAL 0.3 mg/dL (0.2-1); TOT PROT 6.7 g/dl (6.4-8.2)
[~2022-02-26 12:49] MED LIST changes: +BLEOMYCIN SULFATE IVPB ONE; -CISPLATIN IV ONE; -DEXAMETHASONE INJECTION 10 MG in SODIUM CHLORIDE 50 ML IVPB ONE; -ETOPOSIDE IV ONE; +MAGNESIUM SULFATE IN WATER 2 GM/50 ML IVPB IVPB ONE; -PALONOSETRON HCL 0.25 MG/5 ML VIAL IVPUSH ONE; -SODIUM CHLORIDE 1,000 ML IV ONE; +SODIUM CHLORIDE 250 ML IV ONE; -SODIUM CHLORIDE IV ONE; +SODIUM CHLORIDE IVPB ONE
[2022-02-26 16:20] VITALS: TEMP 98.3
[2022-02-26 16:27] VITALS: BP 105/69; PULSE 69
== END 2022-02-26 15:00 | disposition home or self-care (01) ==
LOC: J7W 12:49 → JCHEMO 12:49
PROVIDERS: ATTEND Internal Medicine Hematology & Oncology
PROC: 3E04305 Introduction of Other Antineoplastic into Central Vein, Percutaneous Approach (ICD-10-PCS; principal; 2022-02-26)
PROC: 3E0337Z Introduction of Electrolytic and Water Balance Substance into Peripheral Vein, Percutaneous Approach (ICD-10-PCS; 2022-02-26)
DX: Z51.11 Encounter for antineoplastic chemotherapy (principal); C62.91 Malignant neoplasm of right testis, unspecified whether descended or undescended
CPT/HCPCS: 36415; 80048; 80076; 83615; 83735; 84100; 85025; 96361; 96365; 96409; J9040

== ENCOUNTER 2022-03-15 13:42 | Emergency (ER) | payer OTHER ==
[2022-03-15 13:54] VITALS: BP 115/74; TEMP 98.1; BMI 38.4
[2022-03-15] MEDS ORDERED: BEBTELOVIMAB (EUA) 175 MG/2 ML VIAL IVPUSH ONE (15:09)
[2022-03-15 19:18] VITALS: PULSE 79
== END 2022-03-15 18:30 | disposition home or self-care (01) ==
LOC: JER 13:42
DX: U07.1 COVID-19 (principal)
CPT/HCPCS: 96374; 99284-25; M0222; Q0222

== ENCOUNTER 2022-07-20 18:11 | Emergency (ER) | payer OTHER ==
[2022-07-20 18:18] VITALS: BP 101/65; PULSE 98; RESP 18; TEMP 97.6; BMI 37.5
[2022-07-20] MEDS ORDERED: morphine CARPU-JECT 4 MG/1 ML DISP.SYRIN IVPUSH ONE (19:45)
[2022-07-20] MEDS ORDERED: morphine SULFATE 4 MG/ML VIAL ONE (19:49)
[2022-07-20 20:35] LABS: BASO % 0.2 % (0-2.0); EOS % 0.2 % (0-4.5); HEMATOCRIT 35.3 % (35.4-49); HEMOGLOBIN 11.8 GM/dL (11.7-16.9); LYMPH % 50.8 % (8-40); MCHC 33.4 g/dl (32.0-35.9); MEAN CELL VOLUME 86.9 fl (80-96); MONO % 14.1 % (3.8-10.2); NEUT % 34.7 % (42.8-82.8); RBC 4.06 M/mm3 (4.00-5.60); RDW 16.1 % (11.9-15.9); WHITE BLOOD COUNT 2.8 K/mm3 (4.0-10.0)
[2022-07-20 20:57] LABS: BLOOD UREA NITROGEN 18.2 mg/dL (7-18); CALCIUM 8.6 mg/dL (8.5-10.1)
[2022-07-20 21:00] LABS: CREATININE 1.4 mg/dL (0.55-1.3)
[2022-07-20 21:01] LABS: BILIRUBIN,TOTAL 0.2 mg/dL (0.2-1); TOT PROT 6.2 g/dl (6.4-8.2)
[2022-07-20] MEDS ORDERED: SODIUM CHLORIDE 1,000 ML IV STA (21:11)
[2022-07-20 21:41] LABS: URINE APPEARANCE CLEAR; URINE BILIRUBIN NEGATIVE (NEGATIVE); URINE COLOR YELLOW; URINE GLUCOSE (UA) NEGATIVE (NEGATIVE); URINE KETONE TRACE (NEGATIVE); URINE LEUK ESTERASE NEGATIVE (NEGATIVE); URINE NITRITE NEGATIVE (NEGATIVE); URINE PROTEIN NEGATIVE (NEGATIVE); URINE UROBILINOGEN 0.2 mg/dL (0.2-1.0)
[2022-07-20 21:59] LABS: PLATELET COUNT 37 10^3/uL (134-434)
[2022-07-20 22:02] LABS: MEAN PLT VOLUME 10.8 fl (7.5-11.1)
== END 2022-07-21 00:43 | disposition left against medical advice (07) ==
LOC: JER 18:11
PROC: 3E033NZ Introduction of Analgesics, Hypnotics, Sedatives into Peripheral Vein, Percutaneous Approach (ICD-10-PCS; principal; 2022-07-20)
DX: T45.1X5A Adverse effect of antineoplastic and immunosuppressive drugs, initial encounter (principal)
CPT/HCPCS: 0241U-QW; 36415; 70450-TC; 71046-TC-FY; 80053; 81003; 83690; 85025; 87086; 96374; 99285-25

== ENCOUNTER 2022-08-06 04:58 | Day surgery (SDC) | payer OTHER ==
[2022-08-03 13:47] VITALS: BMI 37.3
[2022-08-06] MEDS ORDERED: MIDAZOLAM HCL 2 MG/2 ML SINGLE DOSE VIAL ONE ×2 (12:09→12:38)
[2022-08-06] MEDS ORDERED: MIDAZOLAM HCL 2 MG/2 ML SINGLE DOSE VIAL IVPUSH ONE ×3 (12:20→12:40)
[2022-08-06] MEDS ORDERED: FENTANYL CITRATE/PF 50 MCG/ML VIAL IVPUSH ONE ×3 (12:20→12:37)
[2022-08-06 17:29] VITALS: BP 119/78; PULSE 90; RESP 15; TEMP 97.5
== END 2022-08-06 14:40 | disposition home or self-care (01) ==
LOC: JRADIR 04:58
PROVIDERS: ATTEND Internal Medicine Hematology & Oncology
PROC: 02HV33Z Insertion of Infusion Device into Superior Vena Cava, Percutaneous Approach (ICD-10-PCS; principal; 2022-08-06)
PROC: B548ZZA Ultrasonography of Superior Vena Cava, Guidance (ICD-10-PCS; 2022-08-06)
DX: C62.90 Malignant neoplasm of unspecified testis, unspecified whether descended or undescended (principal)
CPT/HCPCS: 36561; C1751; 77001-TC-FY; C1788

== ENCOUNTER 2023-11-05 09:57 | Inpatient (IN) | payer OTHER ==
[2023-11-05 10:05] VITALS: BMI 45.4
[2023-11-05] MEDS ORDERED: morphine SULFATE 4 MG/ML VIAL ONE ×2 (11:00→14:53)
[2023-11-05] MEDS ORDERED: ACETAMINOPHEN INJECTION 100 ML IVPB ONE (11:00)
[2023-11-05] MEDS ORDERED: ONDANSETRON 4 MG/2 ML VIAL ONE ×3 (11:00→20:00)
[2023-11-05] MEDS: ONDANSETRON 4 MG/2 ML VIAL IVPUSH ONE ×3 (11:56→20:10)
[2023-11-05] MEDS: morphine CARPU-JECT 4 MG/1 ML DISP.SYRIN IVPUSH ONE (11:56)
[2023-11-05] MEDS: LACTATED RINGERS SOLUTION 1000 ML INFUS.BAG IV ONE ×2 (11:56→15:38)
[2023-11-05] MEDS: ACETAMINOPHEN 1000 MG/100 ML BAG IVPB ONE (11:57)
[2023-11-05 12:12] LABS: HEMATOCRIT 41.7 % (35.4-49); HEMOGLOBIN 13.5 GM/dL (11.7-16.9); LYMPH % 14.9 % (8-40); MCH 27.9 pg (25.7-33.7); MCHC 32.4 g/dl (32.0-35.9); MEAN PLT VOLUME 7.7 fl (7.5-11.1); MONO % 4.3 % (3.8-10.2); NEUT % 80.8 % (42.8-82.8); PLATELET COUNT 307 10^3/uL (134-434); RBC 4.84 M/mm3 (4.00-5.60); WHITE BLOOD COUNT 16.9 K/mm3 (4.0-10.0)
[2023-11-05 12:24] LABS: INR 1.13 (0.83-1.09); PROTHROMBIN TIME (PATIENT) 13.1 SEC (9.7-13.0)
[2023-11-05 12:34] LABS: POTASSIUM 3.6 mmol/L (3.5-5.1)
[2023-11-05 12:37] LABS: ALBUMIN 3.6 g/dl (3.4-5.0); MAGNESIUM 1.8 mg/dL (1.8-2.4)
[2023-11-05 12:39] LABS: CREATININE 2.1 mg/dL (0.55-1.3)
[2023-11-05 12:42] LABS: BILIRUBIN,TOTAL 0.3 mg/dL (0.2-1); TOT PROT 8.1 g/dl (6.4-8.2)
[2023-11-05 12:46] LABS: LACTIC ACID 2.3 mmol/L (0.4-2.0)
[2023-11-05] MEDS: morphine SULFATE 4 MG/ML VIAL IVPUSH ONE (14:48)
[2023-11-05 18:05] LABS: EPI CELLS 12 /uL (0-25.1); HYALINE CASTS 1 /uL (0-3.1); URINE APPEARANCE CLOUDY; URINE BACTERIA 10 /uL (0-1359); URINE BILIRUBIN NEGATIVE (NEGATIVE); URINE COLOR YELLOW; URINE GLUCOSE (UA) NEGATIVE (NEGATIVE); URINE KETONE NEGATIVE (NEGATIVE); URINE LEUK ESTERASE NEGATIVE (NEGATIVE); URINE NITRITE NEGATIVE (NEGATIVE); URINE PROTEIN 2+ (NEGATIVE); URINE RBC 38 /uL (0-23.9); URINE UROBILINOGEN 0.2 mg/dL (0.2-1.0); URINE WBC 48 /uL (0-25.8)
[2023-11-05] MEDS: morphine CARPU-JECT 2 MG/1 ML DISP.SYRIN IVPUSH ONE (19:58)
[2023-11-05] MEDS ORDERED: ACETAMINOPHEN 1000 MG/100 ML BAG IVPB PRN (23:40)
[2023-11-06] MEDS: LACTATED RINGERS SOLUTION 1,000 ML/1,000 ML INFUS.BAG IV SCH (00:28)
[2023-11-06] MEDS ORDERED: ONDANSETRON 4 MG/2 ML VIAL ONE (01:28)
[2023-11-06] MEDS ORDERED: ONDANSETRON 8 MG TABLET (FP) PO ONE (01:38)
[2023-11-06] MEDS: ONDANSETRON 8 MG TABLET (FP) PO PRN (01:51)
[2023-11-06] MEDS: TRIMETHOBENZAMIDE HCL 200MG/2ML INJ IM ONE (02:47)
[2023-11-06 03:47] LABS: LACTIC ACID 2.1 mmol/L (0.4-2.0)
[2023-11-06] MEDS: ONDANSETRON 4 MG/2 ML VIAL IVPUSH PRN (05:38)
[2023-11-06] MEDS: GABAPENTIN 400 MG CAPSULE PO SCH (05:38)
[2023-11-06] MEDS: ACETAMINOPHEN 1000 MG/100 ML BAG IVPB PRN (06:46)
[2023-11-06] MEDS: TRIMETHOBENZAMIDE HCL 200MG/2ML INJ IM PRN (07:57)
[2023-11-06 08:41] LABS: BASO % 0.3 % (0-2.0); EOS % 0.6 % (0-4.5); HEMATOCRIT 36.9 % (35.4-49); HEMOGLOBIN 11.9 GM/dL (11.7-16.9); LYMPH % 19.5 % (8-40); MCH 27.9 pg (25.7-33.7); MCHC 32.3 g/dl (32.0-35.9); MEAN CELL VOLUME 86.5 fl (80-96); MEAN PLT VOLUME 7.4 fl (7.5-11.1); MONO % 5.4 % (3.8-10.2); NEUT % 74.2 % (42.8-82.8); PLATELET COUNT 266 10^3/uL (134-434); RBC 4.26 M/mm3 (4.00-5.60); WHITE BLOOD COUNT 14.5 K/mm3 (4.0-10.0)
[2023-11-06 08:52] LABS: POTASSIUM 3.3 mmol/L (3.5-5.1)
[2023-11-06 08:55] LABS: ALBUMIN 3.4 g/dl (3.4-5.0); BLOOD UREA NITROGEN 20.6 mg/dL (7-18)
[2023-11-06 08:58] LABS: CALCIUM 8.8 mg/dL (8.5-10.1); CREATININE 2.1 mg/dL (0.55-1.3); MAGNESIUM 1.8 mg/dL (1.8-2.4); PHOSPHOROUS 2.7 mg/dL (2.5-4.9)
[2023-11-06 09:00] LABS: BILIRUBIN,TOTAL 0.2 mg/dL (0.2-1); TOT PROT 7.4 g/dl (6.4-8.2)
[2023-11-06] MEDS: TAMSULOSIN HCL 0.4 MG CAP PO SCH (09:20)
[2023-11-06] MEDS ORDERED: PATIENT'S OWN MEDICATION (NON-FORMULARY) (Linaclotide 145 MCG Capsule) PO SCH (10:00)
[2023-11-06] MEDS: KCL 10 MEQ IVPB 10 MEQ/100 ML INFUS.BAG IVPB SCH (10:53)
[2023-11-06] MEDS: MAGNESIUM 1GM/D5W - 1 GM/100 ML IVPB IVPB ONE (10:53)
[2023-11-06] MEDS: ESCITALOPRAM OXALATE 20 MG TABLET PO SCH (10:53)
[2023-11-06] MEDS: HEPARIN NA (PORCINE) 5,000 UNITS/ML 1ML VIAL SQ SCH (13:11)
[2023-11-06] MEDS: ALBUTEROL SO4 HFA INHALER IH PRN (13:11)
[2023-11-06] MEDS: CEFTRIAXONE 1 GM in DEXTROSE 5%-WATER - 50 ML IVPB SCH (14:50)
[2023-11-06] MEDS: FLUTICASONE PROP 0.05% 16 GM NASAL SPRAY NS SCH (14:51)
[2023-11-06] MEDS: BUDESONIDE/FORMOTEROL FUMARATE 80-4.5 MCG (10.3 GM INHALER) IH SCH (14:51)
[2023-11-06] MEDS: BRIMONIDINE TARTRATE 0.2% OPHTHALMIC 5 ML BOTTLE OU SCH (14:51)
[2023-11-06 14:57] VITALS: RESP 18
[2023-11-06] MEDS: FUROSEMIDE 40 MG/4 ML INJECTABLE VIAL IVPUSH ONE (17:54)
[2023-11-06] MEDS: oxyCODONE HCL 5 MG TABLET PO PRN (20:10)
[2023-11-06] MEDS: MONTELUKAST NA 10 MG TABLET PO SCH (21:32)
[2023-11-07 07:39] VITALS: BP 119/72; PULSE 65; TEMP 97.1
[2023-11-07] MEDS ORDERED: ACETAMINOPHEN 500 MG TABLET (FP) PO PRN (08:40)
[2023-11-07 10:18] LABS: BASO % 0.1 % (0-2.0); EOS % 1.7 % (0-4.5); HEMOGLOBIN 12.9 GM/dL (11.7-16.9); LYMPH % 11.1 % (8-40); MCH 28.4 pg (25.7-33.7); MCHC 33.2 g/dl (32.0-35.9); MEAN CELL VOLUME 85.7 fl (80-96); MEAN PLT VOLUME 7.8 fl (7.5-11.1); MONO % 5.6 % (3.8-10.2); NEUT % 81.5 % (42.8-82.8); PLATELET COUNT 239 10^3/uL (134-434); RBC 4.54 M/mm3 (4.00-5.60); RDW 16.9 % (11.9-15.9); WHITE BLOOD COUNT 12.3 K/mm3 (4.0-10.0)
[2023-11-07] MEDS: FLUTICASONE/SALMETEROL (WIXELA) 100 MCG/50 MCG DISKUS IH SCH (10:29)
[2023-11-07] MEDS: LIDOCAINE 4% PATCH TP SCH (10:29)
[2023-11-07 10:33] LABS: POTASSIUM 3.4 mmol/L (3.5-5.1)
[2023-11-07 10:42] LABS: CALCIUM 8.9 mg/dL (8.5-10.1)
[2023-11-07 10:46] LABS: BLOOD UREA NITROGEN 21.4 mg/dL (7-18)
[2023-11-07 10:47] LABS: ALBUMIN 3.6 g/dl (3.4-5.0)
[2023-11-07 10:49] LABS: CREATININE 2.3 mg/dL (0.55-1.3)
[2023-11-07 10:51] LABS: TOT PROT 7.9 g/dl (6.4-8.2)
[2023-11-07 10:52] LABS: BILIRUBIN,TOTAL 0.4 mg/dL (0.2-1)
[2023-11-07] MEDS ORDERED: LIDOCAINE PATCH REMOVAL MC SCH (22:00)
== END 2023-11-07 12:35 | disposition left against medical advice (07) | DRG 694 ==
LOC: JER 09:57 → JERBED 12:06 → J7W 11-06 05:29 → OBSVTOIN 11-07 09:32
PROVIDERS: ADMIT Internal Medicine; ATTEND Internal Medicine
DX: N20.0 Calculus of kidney (principal); N17.9 Acute kidney failure, unspecified; Z68.42 Body mass index [BMI] 45.0-49.9, adult; J45.909 Unspecified asthma, uncomplicated; C62.90 Malignant neoplasm of unspecified testis, unspecified whether descended or undescended; I12.9 Hypertensive chronic kidney disease with stage 1 through stage 4 chronic kidney disease, or unspecified chronic kidney disease; N18.9 Chronic kidney disease, unspecified; K21.9 Gastro-esophageal reflux disease without esophagitis; L93.0 Discoid lupus erythematosus; R63.0 Anorexia; R11.2 Nausea with vomiting, unspecified; F17.210 Nicotine dependence, cigarettes, uncomplicated; G47.00 Insomnia, unspecified; E66.01 Morbid (severe) obesity due to excess calories; H40.9 Unspecified glaucoma
CPT/HCPCS: 36415; 71045-TC-FY; 74176-TC; 80053; 81003; 82962; 83605; 83690; 83735; 84100; 84484; 85025; 85610; 85730; 86850; 86900; 86901; 87040; 87086; 93005; 93010; 99285-25; G0378; J0131; J1644

== ENCOUNTER → 2024-01-30 | Day surgery (SDC) | payer OTHER ==
[~2024-01-30] MED LIST changes: -BLEOMYCIN SULFATE IVPB ONE; -DEXAMETHASONE SODIUM PHOSPHATE 10 MG, ONDANSETRON INJECTION 8 MG in SODIUM CHLORIDE 100 ML IVPB ONE; +LIDOCAINE 1%/EPI 1:100000 (20 ML MULTI DOSE VIAL) ONE; -MAGNESIUM SULFATE IN WATER 2 GM/50 ML IVPB IVPB ONE; -SODIUM CHLORIDE 250 ML IV ONE; -SODIUM CHLORIDE IVPB ONE
[2024-01-30 10:05] LABS: BASO % 0.2 % (0-2.0); EOS % 3.1 % (0-4.5); HEMOGLOBIN 12.4 GM/dL (11.7-16.9); LYMPH % 17.1 % (8-40); MCH 28.9 pg (25.7-33.7); MCHC 32.7 g/dl (32.0-35.9); MEAN CELL VOLUME 88.5 fl (80-96); MEAN PLT VOLUME 7.6 fl (7.5-11.1); MONO % 4.5 % (3.8-10.2); NEUT % 75.1 % (42.8-82.8); PLATELET COUNT 273 10^3/uL (134-434); RDW 16.9 % (11.9-15.9); WHITE BLOOD COUNT 11.1 K/mm3 (4.0-10.0)
[2024-01-30 10:08] LABS: INR 1.1 (0.83-1.09); PROTHROMBIN TIME (PATIENT) 12.8 SEC (9.7-13.0)
[2024-01-30 10:27] LABS: POTASSIUM 4.2 mmol/L (3.5-5.1)
[2024-01-30 10:30] LABS: CALCIUM 8.8 mg/dL (8.5-10.1)
[2024-01-30 10:31] LABS: BLOOD UREA NITROGEN 17.2 mg/dL (7-18)
== END | disposition home or self-care (01) ==
LOC: JRADIR 08:58
PROVIDERS: ATTEND Internal Medicine Hematology & Oncology
PROC: 0JPT0WZ Removal of Totally Implantable Vascular Access Device from Trunk Subcutaneous Tissue and Fascia, Open Approach (ICD-10-PCS; principal; 2024-01-30)
DX: Z45.2 Encounter for adjustment and management of vascular access device (principal); C62.90 Malignant neoplasm of unspecified testis, unspecified whether descended or undescended
CPT/HCPCS: 36415; 36590; 77001-TC-FY; 80048; 85025; 85610